=== PATIENT | male | born 1955 | race Caucasian/White ===

== ENCOUNTER 2021-02-23 18:25 | Emergency (ER) | payer MEDICAID, SELFPAY ==
[2021-02-23 19:51] VITALS: BP 130/83; PULSE 92; RESP 20; TEMP 36.9; O2SAT 95; BMI 36.9
--- NOTE | 2021-02-23 20:02 | HMH.EDUTC ---
[facility] [place] Disposition Clinical Impression: COPD exacerbation Disposition: Home, Self-Care Condition on Discharge: Good Instructions: Chronic Obstructive Pulmonary Disease, Preventing the Spread of Coronavirus Discharge Instructions, DI for COVID-19 (Suspected or Confirmed ) Additional Instructions: Drink plenty of fluids. Take tylenol for pain or fever. Take the medications as directed. Follow up with your regular doctor. GO TO THE ER FOR ANY WORSENING SYMPTOMS Don't start the oral steroids until tomorrow, since you had the shot here today. Watch your blood sugars and follow your diabetic diet closely while you are on the steroids. Steroids will make your blood sugars run higher. Prescriptions: Amoxicillin/Potassium Clav [Augmentin 875-125 Tablet] 1 tab PO Q12H 10 Days #20 tab Transmission Status: [facility] Benzonatate [Benzonatate 100mg cap] 100 mg PO TIDP PRN #30 cap PRN Reason: Cough Transmission Status: Pending to [facility] methylPREDNISolone [Medrol] 4 mg PO DIRECTED 6 Days #21 packet Transmission Status: Pending to [facility] guaiFENesin [Mucinex 600mg tablet] 1 - 2 tab PO BIDP PRN #30 tab PRN Reason: Congestion Transmission Status: Pending to [facility] Referrals: Eugene Hunt [Primary Care Provider] - Time of Disposition: 20:53 Medical Decision Making - Medical Records Medical records reviewed: No: I reviewed the patient's medical records. - Tod Inquiry Pt receiving controlled substance: No Vital Signs: 02/23/21 19:51 Temperature 98.5 F Temperature Source Oral Pulse Rate [Left] 92 H Respiratory Rate 20 Blood Pressure [Right Arm] 130/83 Blood Pressure Mean [Right Arm] 98 02 Sat by Pulse Oximetry 95 Orders (Tests/Meds): ED MEDICATIONS Discontinued Medications Generic Name Dose Route Start Last Admin Trade Name Freq PRN Reason Stop Dose Admin Ceftriaxone Sodium 1 gm 02/23/21 20:29 02/23/21 20:43 Ceftriaxone 1gm Vial IM 02/23/21 20:30 1 gm ONCE ONE Administration Lidocaine HCl 0 ml 02/23/21 20:29 02/23/21 20:43 Lidocaine 1% 5ml Pf Vial IM 02/23/21 20:30 2 ml ONCE ONE Administration Methylprednisolone Sodium Succinate 125 mg 02/23/21 20:29 02/23/21 20:43 Methylprednisolone Sod Succ 125mg Vial IM 02/23/21 20:30 125 mg ONCE ONE Administration ORDERS Category Date Time Status Covid-19 Nasal PCR ([facility]) Routine Lab 02/23/21 20:18 Ordered [facility] [place] HPI - General Stated complaint: cough sob congestion Time Seen by Provider: 02/23/21 20:02 Mode of Arrival: Ambulatory Source of Information: Patient Limitations: No Limitations Description of Symptoms (Recalled from Triage Doc. by RN): pt c/o of congestion. pt also states that periodically he is SOA. HEENT Symptoms (Recalled from RN notes): Yes (congestion) Resp Symptoms (Recalled from RN notes): No Skin Symptoms (Recalled from RN notes): No MS Symptoms (Recalled from RN notes): No Functional Status (Recalled from RN notes): wnl - History of Present Illness Provider Complaint: He states that he has been having shortness of breath, productive cough with greenish sputum and sinus congestion for the past 1 week. He denies any fever or chills. He has a history of copd. - Related Data Previous Rx's Medication Instructions Recorded Amoxicillin/Potassium Clav 1 tab PO Q12H 10 Days #20 tab 02/23/21 [Augmentin 875-125 Tablet] Benzonatate [Benzonatate 100mg 100 mg PO TIDP PRN #30 cap 02/23/21 cap] guaiFENesin [Mucinex 600mg tablet] 1 - 2 tab PO BIDP PRN #30 tab 02/23/21 methylPREDNISolone [Medrol] 4 mg PO DIRECTED 6 Days #21 02/23/21 packet Allergies Allergy/AdvReac Type Severity Reaction Status Date / Time No Known Allergies Allergy Verified 02/23/21 19:53 - Worker's Comp Is this a Worker's Comp case?: No [facility] History - Hepatitis A Screen Drug use history?: No High risk sex
[2021-02-23 20:55] VITALS: BP 130/83; PULSE 92; RESP 20; TEMP 36.9
== END 2021-02-23 21:01 | disposition home or self-care (01) ==
PROVIDERS: Emergency Provider Nurse Practitioner Family; PCP Family Medicine
DX: J44.1 Chronic obstructive pulmonary disease with (acute) exacerbation (principal); Z20.822 Contact with and (suspected) exposure to COVID-19
CPT/HCPCS: 96372; 99202; C9803; G0463; U0003; U0005

== ENCOUNTER 2021-03-08 17:16 | Emergency (ER) | payer MEDICAID, SELFPAY ==
--- NOTE | 2021-03-08 17:26 | XR_ITS ---
PROCEDURE INFORMATION: Exam: XR Chest Exam date and time: 03/08/2021 5:26 PM Age: 65 years old Clinical indication: Cough TECHNIQUE: Imaging protocol: XR of the chest. Views: 1 view. Total images: 1 COMPARISON: No relevant prior studies available. FINDINGS: Lungs: Normal pulmonary expansion. Pulmonary vasculature grossly normal. Alveolar opacities in the left perihilar and right basilar distribution concerning for multifocal pneumonia. Pleural spaces: No pleural effusion. No pneumothorax. Heart/Mediastinum: Heart size normal. No tracheal/mediastinal shift. Bones/joints: No acute osseous abnormalities are identified. IMPRESSION: Bilateral alveolar opacities concerning for multifocal pneumonia.
[2021-03-08 17:29] VITALS: PULSE 50; RESP 24; TEMP 37.2; O2SAT 97; BMI 36.9
[2021-03-08 17:45] VITALS: BP 183/75; PULSE 91; O2SAT 95
[2021-03-08 17:46] LABS: Influenza A, PCR Not Detected (NotDetected); Influenza B, PCR Not Detected (NotDetected)
--- NOTE | 2021-03-08 17:46 | PC.NURSE ---
rad at bedside
[2021-03-08 17:57] LABS: Basophils # 0.1 K/mm3 (0-0.2); Basophils % 1.4 % (0.1-2.0); Eosinophils # 0.2 K/mm3 (0.0-0.4); Eosinophils % 2.1 % (0.1-12.0); Hematocrit 56.4 % (42.0-52.0); Hemoglobin 17.7 g/dL (14.1-18.0); Lymphocytes # 1.5 K/mm3 (0.7-4.5); Mean Corpuscular HGB Conc 31.3 g/dL (31.8-35.4); Mean Corpuscular Hemoglobin 31.5 pg (27.0-31.2); Mean Corpuscular Volume 100.6 fl (80-94); Mean Platelet Volume 8.4 fl (7.4-10.4); Monocytes # 0.6 K/mm3 (0.1-1.0); Monocytes % 7.1 % (1.7-9.3); Neutrophils # 5.6 K/mm3 (1.8-7.8); Neutrophils % 70.4 % (37.0-80.0); Platelet Count 252 K/mm3 (142-424); Red Blood Count 5.61 M/mm3 (4.60-6.20); Red Cell Distribution Width 12.6 % (11.5-17.5); White Blood Count 7.9 K/mm3 (4.8-10.8)
--- NOTE | 2021-03-08 18:00 | HMH.EDGENADL ---
ED Disposition Clinical Impression: Pneumonia due to COVID-19 virus Disposition: Home, Self-Care Condition on Discharge: Good Instructions: DI for COVID-19 (Suspected or Confirmed ) Prescriptions: Albuterol Sulfate [Albuterol Sulfate Hfa] 2 puff IH Q4HP PRN #1 each PRN Reason: Wheezing Transmission Status: Pending to [facility] methylPREDNISolone [Medrol 4mg tab] 4 mg PO DIRECTED #21 tab Transmission Status: Pending to [facility] Azithromycin [Z-Del 250mg Tab] 250 mg PO DIRECTED #6 tab Transmission Status: Pending to [facility] Referrals: Eugene Hunt [Primary Care Provider] - - Critical Care Critical Care Time: No Attestation: On 03/08/21, the high probability of a clinically significant, sudden or life threatening deterioration of the following system(s) required my full and direct attention, intervention and personal management. The time I documented below is in addition to time spent performing reported procedures but includes the following listed in this critical care notation. Medical Decision Making - Medical Records Medical records reviewed: Yes: I reviewed the patient's medical records. - Tod Inquiry Pt receiving controlled substance: No Vital Signs: 03/08/21 17:29 03/08/21 17:45 Temperature 98.9 F Temperature Source Oral Pulse Rate 91 H Pulse Rate [Left Radial] 50 L Respiratory Rate 24 Blood Pressure 183/75 H 02 Sat by Pulse Oximetry 97 95 Oxygen Delivery Method Room Air - Lab Data Lab Results 03/08/21 17:41: WBC 7.9, RBC 5.61, Hgb 17.7, Hct 56.4 H, MCV 100.6 H, MCH 31.5 H, MCHC 31.3 L, RDW 12.6, Plt Count 252, MPV 8.4, Neut % (Auto) 70.4, Lymph % (Auto) 19.0, [place] % (Auto) 7.1, Eos % (Auto) 2.1, Baso % (Auto) 1.4, Neut # (Auto) 5.6, Lymph # (Auto) 1.5, [place] # (Auto) 0.6, Eos # (Auto) 0.2, Baso # (Auto) 0.1 03/08/21 17:41: Sodium 137, Potassium 5.0, Chloride 98, Carbon Dioxide 33 H, Anion Gap 11.0, BUN 12, Creatinine 0.80, Estimated Creat Clear 120, Estimated GFR 97, Est GFR ( Amer) 118, Glucose 291 H, Calcium 9.3, Total Bilirubin 0.3, AST 33, ALT 40, Alkaline Phosphatase 92, Troponin I < 0.01, NT-Pro-B Natriuret Pep 29.0, Total Protein 7.7, Albumin 4.6, Globulin 3.1, Albumin/Globulin Ratio 1.5 03/08/21 17:41: SARS-CoV-2 (PCR) Detected A, Influenza A Untype (PCR) Not detected, Influenza Type B (PCR) Not detected Result diagrams: 03/08/21 17:41 03/08/21 17:41 Orders (Tests/Meds): ED MEDICATIONS Discontinued Medications Generic Name Dose Route Start Last Admin Trade Name Freq PRN Reason Stop Dose Admin Albuterol/Ipratropium 3 ml 03/08/21 17:26 03/08/21 17:52 Ipratropium/Albuterol 3 Ml Neb IH 03/08/21 17:27 3 ml ONCE ONE Administration Dexamethasone Sodium Phosphate 10 mg 03/08/21 17:26 03/08/21 17:54 Dexamethasone 4mg/Ml 5ml Mdv IV 03/08/21 17:27 10 mg ONCE ONE Administration ORDERS Category Date Time Status Troponin I Q3H Lab 03/08/21 20:30 Ordered Troponin I Q3H Lab 03/08/21 23:30 Ordered - Radiology Data #1 Image(s): Chest Image Reviewed: Yes I reviewed the patient's radiology results, Yes I reviewed the patient's radiology image, Yes I have reviewed radiologist's interpretation IMPRESSION: Bilateral alveolar opacities concerning for multifocal pneumonia. - Reevaluation(s) Time: 18:39 Reevaluation #1: On reevaluation, the patient is feeling better. There is no hypoxia or respiratory distress. We did ambulate the patient without any desaturation. Findings are consistent with Covid pneumonia. Patient be placed on a short course of steroids. Needs follow-up with PCP in 48 hours. Given strict return precautions. Verbalized understanding. Medical Decision Narrative: 65-year-old male presented to the emergency department with some difficulty breathing weakness. Patient is wheezing on examination. Vitals are concerning for pneumonia versus bronchitis.
[2021-03-08 18:02] LABS: Chloride 98 mmol/L (98-107); Sodium 137 mmol/L (136-145)
[2021-03-08 18:04] LABS: Alanine Aminotransferase 40 U/L (12-78); Aspartate Amino Transferase 33 U/L (17-59); Blood Urea Nitrogen 12 mg/dl (9-20); Creatinine Clearance Estimated 120 mL/min (50-200); Estimated Glomerular Filt Rate 97 ml/min (>60); GFR (African American) 118 ML/MIN (>60)
[2021-03-08 18:05] LABS: Albumin Level 4.6 g/dl (3.5-5.0); Albumin/Globulin Ratio 1.5 (1.1-1.8); Alkaline Phosphatase 92 U/L (38-126); Bilirubin,Total 0.3 mg/dl (0.2-1.3); Calcium 9.3 mg/dl (8.4-10.2); Carbon Dioxide 33 mmol/L (22.0-30.0); Globulin 3.1 g/dL (1.3-3.2); Glucose 291 mg/dl (74-100); Total Protein,Serum 7.7 g/dl (6.3-8.2)
[2021-03-08 18:17] LABS: Troponin I < 0.01 ng/ml (0.00-0.034)
[2021-03-08 18:36] LABS: Coronavirus 19, PCR Detected (NotDetected)
[2021-03-08 18:41] VITALS: BP 131/90; PULSE 89; RESP 20; TEMP 37.2; O2SAT 91
== END 2021-03-08 18:50 | disposition home or self-care (01) ==
PROVIDERS: Emergency Provider Emergency Medicine; PCP Family Medicine
DX: U07.1 COVID-19 (principal); J12.82 Pneumonia due to coronavirus disease 2019
CPT/HCPCS: 71045; 80053; 83880; 84484; 85025; 96374; 99283; C9803; U0003; U0005

== ENCOUNTER 2021-03-23 21:56 | Emergency (ER) | payer MEDICAID, SELFPAY ==
[2021-03-23 21:57] VITALS: BP 176/83; PULSE 67; RESP 18; TEMP 36.6; O2SAT 97; BMI 36.9
[2021-03-23 22:01] VITALS: BP 176/83; PULSE 71; O2SAT 94
--- NOTE | 2021-03-23 22:03 | ECG_ITS ---
APPROVED REPORT Exam: Resting ECG HR:100 bpm ECG Measurements Heart Rate 100 AXES VT 176 P 101 QRSd 97 QRS 9 QT 353 T 62 QTc 410 Conclusion SINUS TACHYCARDIA WITH OCCASIONAL SUPRAVENTRICULAR PREMATURE COMPLEXES ABNORMAL RHYTHM ECG UNCONFIRMED REPORT Electronically signed by : Roel Barrera MD 03/29/2021 17:36:22
[2021-03-23 22:05] VITALS: BMI 36.9
--- NOTE | 2021-03-23 22:06 | XR_ITS ---
PROCEDURE INFORMATION: Exam: XR Chest Exam date and time: 03/23/2021 10:06 PM Age: 65 years old Clinical indication: Shortness of breath; Additional info: Shortness of air TECHNIQUE: Imaging protocol: XR of the chest. Views: 2 views. COMPARISON: CR XR CHEST PORTABLE 03/08/2021 5:43 PM FINDINGS: Lungs: Mild interval improvement in bilateral pulmonary opacities. Pleural spaces: Unremarkable. No pleural effusion. No pneumothorax. Heart/Mediastinum: Unremarkable. No cardiomegaly. Bones/joints: Unremarkable. IMPRESSION: Mild interval improvement in bilateral pulmonary opacities. This is most likely resolving pneumonia. Follow-up radiographs to resolution is recommended to exclude underlying malignancy.
[2021-03-23 22:30] VITALS: BP 146/79; PULSE 106; RESP 30; O2SAT 96
[2021-03-23 22:40] LABS: Basophils # 0.1 K/mm3 (0-0.2); Eosinophils # 0.2 K/mm3 (0.0-0.4); Eosinophils % 2.1 % (0.1-12.0); Hematocrit 54.6 % (42.0-52.0); Hemoglobin 17.1 g/dL (14.1-18.0); Lymphocytes # 2.3 K/mm3 (0.7-4.5); Lymphocytes % 20.9 % (10-50); Mean Corpuscular HGB Conc 31.4 g/dL (31.8-35.4); Mean Corpuscular Hemoglobin 31.4 pg (27.0-31.2); Mean Corpuscular Volume 99.9 fl (80-94); Monocytes # 0.7 K/mm3 (0.1-1.0); Monocytes % 6.7 % (1.7-9.3); Neutrophils # 7.7 K/mm3 (1.8-7.8); Neutrophils % 69.4 % (37.0-80.0); Platelet Count 305 K/mm3 (142-424); Red Blood Count 5.46 M/mm3 (4.60-6.20); Red Cell Distribution Width 12.6 % (11.5-17.5); White Blood Count 11.1 K/mm3 (4.8-10.8)
[2021-03-23 22:42] LABS: Anion Gap 14.3 mEq/L (5-15); Blood Urea Nitrogen 12 mg/dl (9-20); Calcium 9.3 mg/dl (8.4-10.2); Carbon Dioxide 25 mmol/L (22.0-30.0); Chloride 104 mmol/L (98-107); Creatinine Clearance Estimated 120 mL/min (50-200); Estimated Glomerular Filt Rate 114 ml/min (>60); GFR (African American) 137 ML/MIN (>60); Glucose 147 mg/dl (74-100); Potassium 4.3 mmoL/L (3.5-5.1); Sodium 139 mmol/L (136-145)
[2021-03-23 23:00] VITALS: BP 144/68; PULSE 114; RESP 27; O2SAT 91
[2021-03-23 23:01] LABS: Procalcitonin 0.103 ng/mL (0.0-2.0)
[2021-03-23 23:08] LABS: Lactic Acid 2.3 mmol/L (0.7-2.1)
[2021-03-23 23:09] LABS: Troponin I < 0.01 ng/ml (0.00-0.034)
--- NOTE | 2021-03-23 23:17 | PC.NURSE ---
Pt gone to rad
[2021-03-23 23:22] LABS: Erythrocyte Sedimentation Rate 7 mm/hr (0-20)
--- NOTE | 2021-03-23 23:23 | PC.NURSE ---
Pt refuses ct for pe protocol due to adverse reaction to ct contrast. States that contrast makes him very sleepy and feel nauseaus. Refuses to be premedicated for ct contrast
--- NOTE | 2021-03-23 23:25 | PC.NURSE ---
Pt back from rad
[2021-03-23 23:30] VITALS: BP 133/61; PULSE 93; O2SAT 95
--- NOTE | 2021-03-23 23:54 | PC.NURSE ---
Updated patients daughter.
[2021-03-24] VITALS: BP 141/61; PULSE 107; O2SAT 94
[2021-03-24 00:30] VITALS: BP 133/59; PULSE 100; O2SAT 93
[2021-03-24 01:00] VITALS: BP 121/59; PULSE 93; O2SAT 97
[2021-03-24 01:07] LABS: Influenza A, PCR Not Detected (NotDetected); Influenza B, PCR Not Detected (NotDetected)
--- NOTE | 2021-03-24 01:25 | HMH.EDSOB ---
ED Disposition Clinical Impression: Acute exacerbation of chronic obstructive airways disease, Pneumonia due to COVID-19 virus Disposition: Home, Self-Care Condition on Discharge: Good Instructions: DI for Chronic Obstructive Pulmonary Disease, DI for COVID-19 (Suspected or Confirmed ) Additional Instructions: fluids and see pcp for follow up Prescriptions: levoFLOXacin [Levaquin 500mg tab] 500 mg PO DAILY #7 tab Transmission Status: [facility]ending [facility] predniSONE [Prednisone 20mg Tab] 20 mg PO BID #10 tab Transmission Status: Pending [facility] Referrals: Eugene Hunt [Primary Care Provider] - - Critical Care Critical Care Time: No Attestation: On 03/23/21, the high probability of a clinically significant, sudden or life threatening deterioration of the following system(s) required my full and direct attention, intervention and personal management. The time I documented below is in addition to time spent performing reported procedures but includes the following listed in this critical care notation. Medical Decision Making - Medical Records Medical records reviewed: Yes: I reviewed the patient's medical records. - Tod Inquiry Pt receiving controlled substance: No Vital Signs: 03/23/21 21:57 03/23/21 22:01 03/23/21 22:30 Temperature 97.8 F Temperature Source Oral Pulse Rate 71 106 H Pulse Rate [Apical] 67 Respiratory Rate 18 30 H Blood Pressure 176/83 H 146/79 H Blood Pressure [Right Arm] 176/83 H Blood Pressure Mean [Right Arm] 114 Blood Pressure Source Automatic Cuff Automatic Cuff Blood Pressure Source [Right Arm] Automatic Cuff Blood Pressure Position [Right Arm] Sitting 02 Sat by Pulse Oximetry 97 94 L 96 Oxygen Delivery Method Room Air Room Air Room Air 03/23/21 23:00 03/23/21 23:30 03/24/21 00:00 Temperature Temperature Source Pulse Rate 114 H 93 H 107 H Pulse Rate [Apical] Respiratory Rate 27 H Blood Pressure 144/68 H 133/61 141/61 H Blood Pressure [Right Arm] Blood Pressure Mean [Right Arm] Blood Pressure Source Automatic Cuff Automatic Cuff Blood Pressure Source [Right Arm] Blood Pressure Position [Right Arm] 02 Sat by Pulse Oximetry 91 L 95 94 L Oxygen Delivery Method Room Air Room Air Room Air 03/24/21 00:30 03/24/21 01:00 Temperature Temperature Source Pulse Rate 100 H 93 H Pulse Rate [Apical] Respiratory Rate Blood Pressure 133/59 L 121/59 L Blood Pressure [Right Arm] Blood Pressure Mean [Right Arm] Blood Pressure Source Automatic Cuff Blood Pressure Source [Right Arm] Blood Pressure Position [Right Arm] 02 Sat by Pulse Oximetry 93 L 97 Oxygen Delivery Method Room Air Room Air - Lab Data Lab results reviewed: Yes: I reviewed the patient's lab results. Lab Results 03/23/21 22:07: Sodium 139, Potassium 4.3, Chloride 104, Carbon Dioxide 25, Anion Gap 14.3, BUN 12, Creatinine 0.70, Estimated Creat Clear 120, Estimated GFR 114, Est GFR ( Amer) 137, Glucose 147 H, Calcium 9.3, Troponin I < 0.01, C-Reactive Protein 2.0 03/23/21 22:07: Lactate 2.3 H 03/23/21 22:07: WBC 11.1 H, RBC 5.46, Hgb 17.1, Hct 54.6 H, MCV 99.9 H, MCH 31.4 H, MCHC 31.4 L, RDW 12.6, Plt Count 305, MPV 9.0, Neut % (Auto) 69.4, Lymph % (Auto) 20.9, [place] % (Auto) 6.7, Eos % (Auto) 2.1, Baso % (Auto) 1.0, Neut # (Auto) 7.7, Lymph # (Auto) 2.3, [place] # (Auto) 0.7, Eos # (Auto) 0.2, Baso # (Auto) 0.1, ESR 7 03/23/21 22:07: Procalcitonin 0.103 Result diagrams: 03/23/21 22:07 03/23/21 22:07 Orders (Tests/Meds): ED MEDICATIONS Generic Name Dose Route Start Last Admin Trade Name Freq PRN Reason Stop Dose Admin Albuterol Sulfate 2 puffs 03/24/21 01:30 Albuterol-Hfa 90mcg/Puff Inhaler 8gm IH 04/23/21 01:29 Q4HP PRN Shortness Of Breath Sodium Chloride 1,000 mls @ 999 mls/hr 03/23/21 22:45 03/23/21 22:31 Sod Chlor 0.9% 1000ml Bag IV 03/23/21 23:45 999 mls/hr .Q1H1M BARB
[2021-03-24 01:42] LABS: Troponin I < 0.01 ng/ml (0.00-0.034)
[2021-03-24 01:43] LABS: Coronavirus 19, PCR Detected (NotDetected)
[2021-03-24 01:44] VITALS: BP 132/70; PULSE 95; RESP 20; TEMP 36.8; O2SAT 94
== END 2021-03-24 01:59 | disposition home or self-care (01) ==
PROVIDERS: Emergency Provider Emergency Medicine; PCP Family Medicine
DX: U07.1 COVID-19 (principal); J12.82 Pneumonia due to coronavirus disease 2019; J44.1 Chronic obstructive pulmonary disease with (acute) exacerbation
CPT/HCPCS: 71046; 80048; 83605; 84145; 84484; 85025; 85651; 86140; 93005; 96365; 96366; 96367; 96375; 99283; C9803; J0696; U0003; U0005

== ENCOUNTER 2021-07-16 17:33 | Emergency (ER) | payer MEDICAID, SELFPAY ==
[2021-07-16 17:50] VITALS: BP 125/81; PULSE 103; RESP 20; TEMP 36.6; O2SAT 95; BMI 32.5
--- NOTE | 2021-07-16 18:45 | HMH.EDUTC ---
[facility] [place] Disposition Clinical Impression: Loss of taste Disposition: Home, Self-Care Condition on Discharge: Good Instructions: True or False: Different Parts of the Tongue Sense Different Tastes, When Food Doesn't Taste Good, Taste and Smell Disorders Additional Instructions: You was checked for COVID today in the [facility] due to loss of taste your results should be back in the next 24-48 hours if they are negative make sure to follow up with your Family Doctor as soon as possible for further evaluation Rinse your mouth with Listerine may help with bad taste in mouth Return if needed Make sure to try drinks like gatoaide zero, yogurt and continue trying to eat even if foods taste off to keep you hydrated and nourished Straight to ER if any life threatening symptoms Referrals: Addison Colón MD [Primary Care Provider] - Time of Disposition: 18:58 Medical Decision Making - Tod Inquiry Pt receiving controlled substance: No Tod was queried for this patient: No Vital Signs: 07/16/21 17:50 Temperature 97.9 F Temperature Source Oral Pulse Rate [Right Brachial] 103 H Respiratory Rate 20 Blood Pressure [Right Arm] 125/81 Blood Pressure Mean [Right Arm] 95 Blood Pressure Source [Right Arm] Automatic Cuff Blood Pressure Position [Right Arm] Sitting 02 Sat by Pulse Oximetry 95 Oxygen Delivery Method Room Air Orders (Tests/Meds): ORDERS Category Date Time Status Full Resp Panel w/COVID ([facility]) Routine Lab 07/16/21 18:53 Ordered [facility] HPI - General Stated complaint: CAN'T EAT , LOST OS TASTE Time Seen by Provider: 07/16/21 18:45 Mode of Arrival: Ambulatory Source of Information: Patient Limitations: No Limitations Description of Symptoms (Recalled from Triage Doc. by RN): PATIENT C/O DECREASED APPETITE AND STATES FOOD HAS BEEN HAVING A CHEMICAL SMELL AND TASTE X 3 WEEKS HEENT Symptoms (Recalled from RN notes): No Resp Symptoms (Recalled from RN notes): No Skin Symptoms (Recalled from RN notes): No MS Symptoms (Recalled from RN notes): No Functional Status (Recalled from RN notes): WNL - History of Present Illness Provider Complaint: Patient states that he has had a loss of appetite and for the last couple of weeks he has noticed that at times nothing tastes right States that he has tried several foods that he use to like but they dont taste well States that he did this after COVID but it got better and now it is back and he wasnt sure why - Related Data Home Medications Medication Instructions Recorded Confirmed hydroxyzine HCl 25 mg tablet 25 mg PO TID PRN 06/28/21 06/28/21 insulin glargine 100 unit/mL (3 42 unit SQ DAILY ml 06/28/21 06/28/21 mL) subcutaneous pen liraglutide 0.6 mg/0.1 mL (18 mg/3 1.8 mg SQ Q24H ml 06/28/21 06/28/21 mL) subcutaneous pen injector metformin 1,000 mg tablet 1,000 mg PO BID 06/28/21 06/28/21 omeprazole 20 mg capsule,delayed 20 mg PO DAILY 06/28/21 06/28/21 release simvastatin 20 mg tablet 20 mg PO HS 06/28/21 06/28/21 umeclidinium 62.5 mcg-vilanterol 1 inh INHALATION DAILY 06/28/21 06/28/21 25 mcg/actuation powdr for inhalation Previous Rx's Medication Instructions Recorded Albuterol Sulfate [Albuterol 2 puff IH Q4HP PRN #1 each 03/08/21 Sulfate Hfa] gabapentin 600 mg tablet 600 mg PO TID #90 tab 06/28/21 hydrocodone 5 mg-acetaminophen 325 1 tab PO BID #60 tab 06/28/21 mg tablet hydrocortisone 1 % topical cream 1 applic TOPICAL BID PRN #28.4 g 06/28/21 methylprednisolone 4 mg tablets in See Rx Instructions PO PER PKG DIR 06/28/21 a dose pack #21 tab Allergies Allergy/AdvReac Type Severity Reaction Status Date / Time Iodinated Contrast Media Allergy Mild hives Verified 06/28/21 15:25 - Worker's Comp Is this a Worker's Comp case?: No [facility] History - Hepatitis A Screen Attestation statement:: This patient has been screened for Hepatitis A risk factors. I have reviewed the patient's past medical history: Yes Medical History: Re
[2021-07-16 19:00] VITALS: BP 125/81; PULSE 103; RESP 20; TEMP 36.6; O2SAT 95
[2021-07-16 19:01] LABS: Adenovirus,PCR Not Detected (NotDetected); Bordetella Pertussis Not Detected (NotDetected); Chlamydophila Pneumoniae, PCR Not Detected (NotDetected); Coronavirus 19, PCR Not Detected (NotDetected); Coronavirus 229E Not Detected (NotDetected); Coronavirus NL63 Not Detected (NotDetected); Coronavirus OC43 Not Detected (NotDetected); Coronovirus HKU1,PCR Not Detected (NotDetected); Human Metapneumovirus Not Detected (NotDetected); Influenza A, PCR Not Detected (NotDetected); Influenza AH1, 2009 Not Detected (NotDetected); Influenza AH1, PCR Not Detected (NotDetected); Influenza AH3,PCR Not Detected (NotDetected); Influenza B, PCR Not Detected (NotDetected); Mycoplasma Pneumoniae, PCR Not Detected (NotDetected); Parainfluenza 1, PCR Not Detected (NotDetected); Parainfluenza 2, PCR Not Detected (NotDetected); Parainfluenza 3, PCR Not Detected (NotDetected); Parainfluenza 4, PCR Not Detected (NotDetected); Respiratory Syncytial Virus Not Detected (NotDetected); Rhinovirus/Enterovirus Not Detected (NotDetected)
== END 2021-07-16 19:04 | disposition home or self-care (01) ==
PROVIDERS: Emergency Provider Nurse Practitioner; PCP Emergency Medicine
DX: R43.2 Parageusia (principal); E11.9 Type 2 diabetes mellitus without complications; K21.9 Gastro-esophageal reflux disease without esophagitis; J44.9 Chronic obstructive pulmonary disease, unspecified; F17.210 Nicotine dependence, cigarettes, uncomplicated; I10 Essential (primary) hypertension; E78.5 Hyperlipidemia, unspecified; Z79.899 Other long term (current) drug therapy
CPT/HCPCS: 87581; 87632; 87798; 99213; C9803; G0463; U0003; U0005

== ENCOUNTER 2021-07-27 10:15 | Observation (INO) | payer MEDICARE, MEDICAID, SELFPAY ==
[2021-07-27] VITALS (12 sets, daily range): BP systolic 90–152; BP diastolic 45–67; PULSE 48–92; RESP 16–20; TEMP 36.4–36.7; O2SAT 95–98; BMI 29.8; BMI 31.2
--- NOTE | 2021-07-27 10:07 | ECG_ITS ---
APPROVED REPORT Exam: Resting ECG HR:92 bpm ECG Measurements Heart Rate 92 AXES KS 175 P 102 QRSd 89 QRS 1 QT 319 T 54 QTc 369 Conclusion SINUS RHYTHM WITH FREQUENT VENTRICULAR PREMATURE COMPLEXES IN A BIGEMINAL PATTERN ABNORMAL RHYTHM ECG UNCONFIRMED REPORT Electronically signed by : Roel Barrera MD 07/27/2021 21:11:34
--- NOTE | 2021-07-27 10:12 | HMH.EDGENADL ---
ED Disposition Clinical Impression: Dehydration, UMESH (acute kidney injury), Altered taste, Weight loss, Anorexia Disposition: Admitted as Observation Condition on Discharge: Fair Referrals: Addison Colón MD [Primary Care Provider] - - Critical Care Critical Care Time: No Attestation: On , the high probability of a clinically significant, sudden or life threatening deterioration of the following system(s) required my full and direct attention, intervention and personal management. The time I documented below is in addition to time spent performing reported procedures but includes the following listed in this critical care notation. Medical Decision Making - Tod Inquiry Pt receiving controlled substance: No Vital Signs: 07/27/21 10:09 07/27/21 10:30 07/27/21 11:00 Temperature 97.6 F Temperature Source Oral Pulse Rate 78 78 Pulse Rate [Right Radial] 48 L Respiratory Rate 16 20 20 Blood Pressure 93/57 L 90/54 L Blood Pressure [Right Radial Artery] 100/45 L Blood Pressure Mean 66 75 Blood Pressure Mean [Right Radial Artery] 63 Blood Pressure Position [Right Radial Artery] Sitting 02 Sat by Pulse Oximetry 98 95 95 Oxygen Delivery Method Room Air 07/27/21 12:00 07/27/21 12:15 Temperature Temperature Source Pulse Rate 92 H 85 Pulse Rate [Right Radial] Respiratory Rate 17 19 Blood Pressure 105/64 L 120/61 Blood Pressure [Right Radial Artery] Blood Pressure Mean 73 Blood Pressure Mean [Right Radial Artery] Blood Pressure Position [Right Radial Artery] 02 Sat by Pulse Oximetry 95 96 Oxygen Delivery Method - Lab Data Lab Results 07/27/21 10:14: WBC 13.4 H, RBC 5.47, Hgb 17.5, Hct 51.1, MCV 93.3, MCH 32.0 H, MCHC 34.3, RDW 12.8, Plt Count 330, MPV 7.9, Neut % (Auto) 72.2, Lymph % (Auto) 18.3, [place] % (Auto) 6.4, Eos % (Auto) 1.5, Baso % (Auto) 1.6, Neut # (Auto) 9.7 H, Lymph # (Auto) 2.5, [place] # (Auto) 0.9, Eos # (Auto) 0.2, Baso # (Auto) 0.2 07/27/21 10:14: Sodium 128 L, Potassium 5.2 H, Chloride 92 L, Carbon Dioxide 23, Anion Gap 18.2 H, BUN 55 H, Creatinine 1.60 H, Estimated Creat Clear 60, Estimated GFR 44 L, Est GFR ( Amer) 53 L, Glucose 162 H, Calcium 10.1, Total Bilirubin 0.5, AST 31, ALT 28, Alkaline Phosphatase 75, Troponin I < 0.01, Total Protein 7.3, Albumin 4.6, Globulin 2.7, Albumin/Globulin Ratio 1.7 07/27/21 12:09: Urine Color Yellow, Urine Appearance Clear, Urine pH 6.0, Ur Specific [place] 1.020, Urine Protein 1+, Urine Glucose (UA) Negative, Urine Ketones Trace, Urine Blood Negative, Urine Nitrate Negative, Urine Bilirubin 1+ A, Urine Urobilinogen 1.0, Ur Leukocyte Esterase Negative, Urine RBC None, Urine WBC Occasional, Ur Squamous Epith Cells Occasional, Urine Bacteria Trace, Hyaline Casts 3-5 Result diagrams: 07/27/21 10:14 07/27/21 10:14 Orders (Tests/Meds): ED MEDICATIONS Discontinued Medications Generic Name Dose Route Start Last Admin Trade Name Freq PRN Reason Stop Dose Admin Sodium Chloride 1,000 mls @ 999 mls/hr 07/27/21 10:30 07/27/21 10:39 Sod Chlor 0.9% 1000ml Bag IV 07/27/21 11:30 999 mls/hr .Q1H1M BARB Administration ORDERS Category Date Time Status US gallbladder Stat Exams 07/27/21 13:05 Ordered Troponin I Q3H Lab 07/27/21 13:15 Ordered Troponin I Q3H Lab 07/27/21 16:15 Ordered - Radiology Data #1 Image(s): Chest Image Reviewed: Yes I reviewed the patient's radiology image, Yes I have reviewed radiologist's interpretation Procedure(s): XR chest portable Accession Number(s): [id number] cc: Addison Colón MD; Germain Beth MD~ FINAL REPORT CLINICAL HISTORY: nausea COMPARISON: March 23, 2021 FINDINGS: The heart and mediastinal structures are unremarkable. There is mild atelectasis or scarring bilaterally. There is no pneumothorax. No acute osseous abnormality is identified. IMPRESSION: Mild atelectasis or scarring bilaterally. Reviewed, Interpreted and
--- NOTE | 2021-07-27 10:15 | XR_ITS ---
FINAL REPORT CLINICAL HISTORY: nausea COMPARISON: March 23, 2021 FINDINGS: The heart and mediastinal structures are unremarkable. There is mild atelectasis or scarring bilaterally. There is no pneumothorax. No acute osseous abnormality is identified. IMPRESSION: Mild atelectasis or scarring bilaterally. Reviewed, Interpreted and Dictated by Germain Beth III, MD Transcribed by Ileana Burgos Authenticated by Germain Beth III, MD on 07/27/2021 11:13:[address] [facility]
[2021-07-27 10:25] LABS: Basophils # 0.2 K/mm3 (0-0.2); Basophils % 1.6 % (0.1-2.0); Eosinophils # 0.2 K/mm3 (0.0-0.4); Eosinophils % 1.5 % (0.1-12.0); Hematocrit 51.1 % (42.0-52.0); Hemoglobin 17.5 g/dL (14.1-18.0); Lymphocytes # 2.5 K/mm3 (0.7-4.5); Lymphocytes % 18.3 % (10-50); Mean Corpuscular HGB Conc 34.3 g/dL (31.8-35.4); Mean Corpuscular Volume 93.3 fl (80-94); Mean Platelet Volume 7.9 fl (7.4-10.4); Monocytes # 0.9 K/mm3 (0.1-1.0); Monocytes % 6.4 % (1.7-9.3); Neutrophils # 9.7 K/mm3 (1.8-7.8); Neutrophils % 72.2 % (37.0-80.0); Platelet Count 330 K/mm3 (142-424); Red Blood Count 5.47 M/mm3 (4.60-6.20); Red Cell Distribution Width 12.8 % (11.5-17.5); White Blood Count 13.4 K/mm3 (4.8-10.8)
[2021-07-27 10:27] LABS: Chloride 92 mmol/L (98-107); Potassium 5.2 mmoL/L (3.5-5.1); Sodium 128 mmol/L (136-145)
[2021-07-27 10:30] LABS: Albumin Level 4.6 g/dl (3.5-5.0); Albumin/Globulin Ratio 1.7 (1.1-1.8); Alkaline Phosphatase 75 U/L (38-126); Anion Gap 18.2 mEq/L (5-15); Aspartate Amino Transferase 31 U/L (17-59); Bilirubin,Total 0.5 mg/dl (0.2-1.3); Blood Urea Nitrogen 55 mg/dl (9-20); Calcium 10.1 mg/dl (8.4-10.2); Carbon Dioxide 23 mmol/L (22.0-30.0); Creatinine Clearance Estimated 60 mL/min (50-200); Estimated Glomerular Filt Rate 44 ml/min (>60); GFR (African American) 53 ML/MIN (>60); Globulin 2.7 g/dL (1.3-3.2); Glucose 162 mg/dl (74-100); Total Protein,Serum 7.3 g/dl (6.3-8.2)
[2021-07-27 10:43] LABS: Alanine Aminotransferase 28 U/L (12-78)
[2021-07-27 10:57] LABS: Troponin I < 0.01 ng/ml (0.00-0.034)
--- NOTE | 2021-07-27 11:17 | CT_ITS ---
FINAL REPORT CLINICAL HISTORY: not eating, losing weight FINDINGS: Axial CT images of the abdomen and pelvis were obtained without intravenous contrast. Coronal reformatted images were also obtained.This study was performed with techniques to keep radiation doses as low as reasonably achievable (ALARA). Individualized dose reduction techniques using automated exposure control or adjustment of mA and/or kV according to the patient's size were employed. Abdomen: There is no evidence of renal stone or hydronephrosis. There are several low-attenuation masses in the kidneys that cannot be accurately characterized without contrast. The gallbladder is present. The liver, spleen and pancreas have an unremarkable, unenhanced appearance. There is bilateral adrenal gland enlargement favoring hyperplasia. No inflammatory process is identified. There is a small supraumbilical hernia containing fat. There is a small umbilical hernia containing fat. Pelvis: Images of the pelvis reveal no evidence of ureteral dilation or ureteral stone.No mass or abnormal fluid collection is identified. The appendix is normal. IMPRESSION: Low-attenuation renal masses cannot be accurately characterized. Reviewed, Interpreted and Dictated by Germain Beth III, MD Transcribed by Mckay Mccurdy Authenticated by Germain Beth III, MD on 07/27/2021 12:35:04 PM [facility]
--- NOTE | 2021-07-27 11:17 | CT_ITS ---
FINAL REPORT CLINICAL HISTORY: possible seizure FINDINGS: Axial images of the head were obtained without contrast. Coronal reformatted images were also obtained.This study was performed with techniques to keep radiation doses as low as reasonably achievable (ALARA). Individualized dose reduction techniques using automated exposure control or adjustment of mA and/or kV according to the patient''s size were employed. There is no evidence of intracranial hemorrhage or mass. The ventricular size is within normal limits. There is no evidence of shift of the midline structures. No abnormal extra axial fluid collection is identified. No skull abnormality is seen on the bone window images. IMPRESSION: No acute intracranial abnormality. Reviewed, Interpreted and Dictated by Germain Beth III, MD Transcribed by Mckay Mccurdy Authenticated by Germain Beth III, MD on 07/27/2021 12:35:05 PM [facility]
--- NOTE | 2021-07-27 11:17 | CT_ITS ---
FINAL REPORT TECHNIQUE: Axial images were obtained from the lung apex to the mid abdomen by computed tomography. Coronal reformatted images were obtained. This study was performed with techniques to keep radiation doses as low as reasonably achievable, (ALARA). Individualized dose reduction techniques using automated exposure control or adjustment of mA and/or kV according to the patient''s size were employed. CLINICAL HISTORY: not eating, losing weight FINDINGS: There is no axillary adenopathy. There is no hilar or mediastinal adenopathy. Heart size is normal. There is no pericardial or pleural effusion. There is a 3 mm nodule in the left upper lobe on image 20. There is mild atelectasis or scarring. A calcified granuloma is seen in the lingula. IMPRESSION: 3 mm left upper lobe nodule. If indicated, follow-up in 12 months. Reviewed, Interpreted and Dictated by Germain Beth III, MD Transcribed by Mckay Mccurdy Authenticated by Germain Beth III, MD on 07/27/2021 12:35:04 PM [facility]
--- NOTE | 2021-07-27 11:25 | PC.NURSE ---
pt to radiology with cat scan technologist by susy
--- NOTE | 2021-07-27 11:48 | PC.NURSE ---
pt sitting up on side of the bed using urinal at this time
--- NOTE | 2021-07-27 12:10 | PC.NURSE ---
UA sent to lab; patient hooked back to monitor and has no other needs at this time
[2021-07-27 12:13] LABS: Microscopic, Urine URINE MICROSCOPIC (MICROSCOPIC)
[2021-07-27 12:18] LABS: Appearance,Urine CLEAR (Clear); Blood, Urine Negative (Negative); Color,Urine YELLOW (Yellow); Glucose,Urine (UA) Negative (Negative); Ketones,Urine TRACE (Negative); Leukocyte Esterase,Urine Negative (Negative); Nitrate,Urine Negative (Negative); Protein,Urine 1+ (Negative)
[2021-07-27 12:41] LABS: Bacteria,Urine Trace /lpf; Bilirubin,Urine 1+ (Negative); Squamous Epithelial Cell,Urine Occasional #/hpf (0-5); WBC,Urine Occasional #/hpf (0-3)
--- NOTE | 2021-07-27 13:01 | PC.NURSE ---
Dr. Pino speaking with Dr. Colón
--- NOTE | 2021-07-27 13:05 | US_ITS ---
PROCEDURE INFORMATION: Exam: US Abdomen, Limited; Right Upper Quadrant Exam date and time: 07/27/2021 4:33 PM Age: 65 years old Clinical indication: Nausea; Patient HX: Loss of weight; Additional info: Not eating TECHNIQUE: Imaging protocol: US abdomen. Real time ultrasound with image documentation. Limited exam focused on the right upper quadrant. COMPARISON: CT ABDOMEN PELVIS WO CON 07/27/2021 11:26 AM FINDINGS: Liver: No masses. Gallbladder: The gallbladder is dilated measuring 13 cm in length. There is no wall thickening. No calculi; small amount of sludge. Biliary ducts: Common bile duct is 3 mm. Pancreas: The pancreatic head is unremarkable. The body and tail are obscured by bowel gas. Right kidney: Normal. No mass. No hydronephrosis. IMPRESSION: No evidence of cholelithiasis and/or cholecystitis. There is a small amount of sludge in a dilated gallbladder.
--- NOTE | 2021-07-27 13:05 | PC.NURSE ---
ED MD at speaking with patient
--- NOTE | 2021-07-27 13:05 | PC.NURSE ---
Spoke to Alina in Care Management regarding patient admission
[2021-07-27 13:12] LABS: Coronavirus 19, PCR Not Detected (NotDetected); Influenza A, PCR Not Detected (NotDetected); Influenza B, PCR Not Detected (NotDetected)
--- NOTE | 2021-07-27 13:51 | PC.NURSE ---
Family at BS
--- NOTE | 2021-07-27 14:00 | PC.NURSE ---
REPORT CALLED TO RADHA MATSON
--- NOTE | 2021-07-27 14:24 | HMH.PHAINT ---
MEDICATION RECONCILIATION COMPLETE USING LIST FROM MOST RECENT MD OFFICE VISIT AND EXTERNAL PHARMACY FILL HISTORY.
--- NOTE | 2021-07-27 14:51 | PC.NURSE ---
pt going to 2nd floor by wheelchair with TAO Vidal to be transported to 2nd floor
--- NOTE | 2021-07-27 14:55 | PC.NURSE ---
Pt arrived to the floor at this time
--- NOTE | 2021-07-27 14:59 | HMH.PHAVTE ---
[facility] Pharm[facility] VTE Monitoring - Patient Demographics Admission date: 07/27/21 Report Date: 07/27/21 Time: 14:59 Allergies/Adverse Reactions: Patient Allergies Iodinated Contrast Media Allergy (Mild, Verified 07/27/21 09:05) hives Height: 1.75 m Weight: 91.626 kg Patient Problems: Current Active Problems Dehydration (Acute) UMESH (acute kidney injury) (Acute) Altered taste (Acute) Weight loss (Acute) Anorexia (Acute) - VTE Risk Labs: VTE Related Lab Results Hgb 17.5 g/dL (14.1-18.0) 07/27/21 10:14 Hct 51.1 % (42.0-52.0) 07/27/21 10:14 Plt Count 330 K/mm3 (142-424) 07/27/21 10:14 BUN 55 mg/dl (9-20) H 07/27/21 10:14 Creatinine 1.60 mg/dl (0.66-1.25) H 07/27/21 10:14 Estimated Creat Clear 60 mL/min (50-200) 07/27/21 10:14 Was VTE Risk Assessment Performed: No Clinical Trial Participant: No - Prophylaxis VTE Prophylaxis Ordered?: Yes Types of VTE Prophylaxis: TEDS Knee High Location of Applied Device: Bilateral Lower Extremeties
[2021-07-27 16:55] LABS: POC Glucose,Bedside 106 (70-110)
--- NOTE | 2021-07-27 20:05 | HMH.HP ---
*Admission Date: 07/27/21 *Chief complaint: weakness *History of present illness: this patient was seen in [facility] office this am with hx of wt loss and dec po intake with vomiting - pt had covid-19 in 03/20 and since dec smell and taste with dec po intake - pt had possible sz like activity in office and was transfered to ed for eval - pt was seen in the ed - the patient has not been well for the past month or so. Has been recently seen at [facility] and was at his office for follow-up. Had an episode that could have been an atypical seizure with staring off to the side and not responding, has returned to normal. Daughter says the patient is also had episodes of passing out at home. She says that for the past month he has not been able to eat, everything that he tries to eat has a metallic taste. He has lost 18 pounds since his last doctor's visit. He is generally weak. Daughter says she has looked up symptoms on the Internet and found that some people have similar symptoms after COVID. He has had COVID several months ago. The patient is a smoker. He denies any pain. No fever. He has had no change in his bowel habits. No urinary symptoms. Daughter states that he is also had problems recently with his neck and left arm and wears a glove on his left arm because his left hand is always cold and painful. pt was found to have hayde and was admitted for eval and treatment [facility] History I have reviewed the patient's past medical history: Yes Medical History: Reports:: Anxiety, Chronic Obstructive Pulmonary Disease (COPD), Diabetes Mellitus Type 2, Gastroesophageal Reflux Disease(GERD), Hyperlipidemia, Hypertension Denies:: Cancer, Diabetes Mellitus Type 1, MRSA *Have you ever received a pneumonia vaccine?: No *Have you received a flu vaccine this season?: Yes Other Surgeries: Yes: No Previous Surgery Amputation: No Fractures: No - *Social History Last grade of school completed: 7th or 8th Smoking Status: Current every day smoker Tobacco Type: cigarettes # Packs/Day (cigarettes): 1 Alcohol Intake: former Alcohol Intake Frequency:: holidays/special occasions only Substance Use Type: denies use *Occupational Status:: retired Housing: apartment Household Members: none *Travel in the last 8 weeks: None - Psychiatric History Pschychiatric History:: Reports:: Anxiety Family Hx:: Cancer, Diabetes, Hypertension Review of Systems - Review of Systems Review of systems:: pertinent systems reviewed and negative unless documented below - Constitutional Reports weakness, Denies fever(s) - Eyes Denies change in vision - ENT Denies sore throat - *Cardiovascular Denies chest pain at rest - *Respiratory Denies cough - *Gastrointestinal Reports nausea, Reports vomiting, Denies abdominal pain, Denies black, tarry stools - *Genitourinary Denies difficulty urinating - *Musculoskeletal Denies joint pain - Integumentary/Breasts Denies rash - *Neurologic Reports seizure-like activity, Reports fainting, Reports weakness - Psychiatric Denies depression Meds Home Medications Medication Instructions Recorded Confirmed Type Albuterol Sulfate [Albuterol 2 puff IH Q4HP PRN #1 each 03/08/21 07/27/21 Rx Sulfate Hfa] hydroxyzine HCl 25 mg tablet 25 mg PO TIDP PRN 06/28/21 07/27/21 History insulin glargine 100 unit/mL (3 42 unit SQ DAILY ml 06/28/21 07/27/21 History mL) subcutaneous pen liraglutide 0.6 mg/0.1 mL (18 mg/3 1.8 mg SQ Q24H ml 06/28/21 07/27/21 History mL) subcutaneous pen injector metformin 1,000 mg tablet 1,000 mg PO BIDWMEAL 06/28/21 07/27/21 History omeprazole 20 mg capsule,delayed 20 mg PO DAILY 06/28/21 07/27/21 History release simvastatin 20 mg tablet 20 mg PO HS 06/28/21 07/27/21 History umeclidinium 62.5 mcg-vilanterol 1 inh INHALATION DAILY 06/28/21 07/27/21 History 25 mcg/actuation powdr for inhalation Gabapentin 600 mg PO TID 07/27/21 07/27/21 History Hydrocod/Acet
[2021-07-27 21:34] LABS: POC Glucose,Bedside 77 (70-110)
[2021-07-28 04:00] VITALS: BP 110/48; PULSE 63; RESP 14; TEMP 36.7; O2SAT 94
[2021-07-28 04:44] VITALS: BMI 31.3
[2021-07-28 06:02] LABS: POC Glucose,Bedside 85 (70-110)
--- NOTE | 2021-07-28 06:09 | PC.NURSE ---
No acute changes. pt a + o x4. Able to ambulate to BR standby assist. Pt has not voiced any complaints to staff t/o shift. Daughter at bedside. Call light within reach.
[2021-07-28 06:25] LABS: Chloride 98 mmol/L (98-107); Potassium 4.6 mmoL/L (3.5-5.1); Sodium 131 mmol/L (136-145)
[2021-07-28 06:28] LABS: Anion Gap 10.6 mEq/L (5-15); Blood Urea Nitrogen 41 mg/dl (9-20); Calcium 8.7 mg/dl (8.4-10.2); Carbon Dioxide 27 mmol/L (22.0-30.0); Creatinine Clearance Estimated 99 mL/min (50-200); Estimated Glomerular Filt Rate 75 ml/min (>60); GFR (African American) 91 ML/MIN (>60); Glucose 84 mg/dl (74-100)
[2021-07-28 07:33] VITALS: BP 120/61; PULSE 68; RESP 16; TEMP 36.7; O2SAT 97
[2021-07-28 08:00] VITALS: O2SAT 97
--- NOTE | 2021-07-28 09:38 | HMH.PULMCON ---
*Admission Date: 07/27/21 *Reason for consult:: Nausea and vomiting *History of present illness: Mr. Hunt is a 65-year-old male current smoker greater than 30 COPD currently on Anoro inhaler, diagnosed with COVID-19 pneumonia in February 2021 - outpatient presented to the clinic with also further evaluation evaluate for any possible pulmonary etiologies of his current symptoms. [facility] History Medical History: Reports:: Anxiety, Chronic Obstructive Pulmonary Disease (COPD), Diabetes Mellitus Type 2, Gastroesophageal Reflux Disease(GERD), Hyperlipidemia, Hypertension Denies:: Cancer, Diabetes Mellitus Type 1, MRSA *Have you ever received a pneumonia vaccine?: No *Have you received a flu vaccine this season?: Yes Other Surgeries: Yes: No Previous Surgery Amputation: No Fractures: No - *Social History Last grade of school completed: 7th or 8th Smoking Status: Current every day smoker Tobacco Type: cigarettes # Packs/Day (cigarettes): 1 Alcohol Intake: former Alcohol Intake Frequency:: holidays/special occasions only Substance Use Type: denies use *Occupational Status:: retired Housing: apartment Household Members: none *Travel in the last 8 weeks: None - Psychiatric History Pschychiatric History:: Reports:: Anxiety Family Hx:: Cancer, Diabetes, Hypertension ROS - Cons Reports fatigue, Reports weight loss, Denies anorexia, Denies body ache(s) - Eyes Reports blurry vision - ENT Denies bleeding gums - Card Reports shortness of breath, Reports shortness of breath with activity - Resp Respiratory: Reports chest congestion, Reports cough, Denies excessive phlegm production, Reports cough with sputum production - GI Gastrointestingal: Reports: dysphagia, nausea, reflux, vomiting. Denies: abdominal pain - [place] Musculoskeletal: Reports back pain - Psych Denies thoughts of hurting/killing others, Denies thoughts of hurting/killing yourself Meds Home Medications Medication Instructions Recorded Confirmed Type Albuterol Sulfate [Albuterol 2 puff IH Q4HP PRN #1 each 03/08/21 07/27/21 Rx Sulfate Hfa] hydroxyzine HCl 25 mg tablet 25 mg PO TIDP PRN 06/28/21 07/27/21 History insulin glargine 100 unit/mL (3 42 unit SQ DAILY ml 06/28/21 07/27/21 History mL) subcutaneous pen liraglutide 0.6 mg/0.1 mL (18 mg/3 1.8 mg SQ Q24H ml 06/28/21 07/27/21 History mL) subcutaneous pen injector metformin 1,000 mg tablet 1,000 mg PO BIDWMEAL 06/28/21 07/27/21 History omeprazole 20 mg capsule,delayed 20 mg PO DAILY 06/28/21 07/27/21 History release simvastatin 20 mg tablet 20 mg PO HS 06/28/21 07/27/21 History umeclidinium 62.5 mcg-vilanterol 1 inh INHALATION DAILY 06/28/21 07/27/21 History 25 mcg/actuation powdr for inhalation Gabapentin 600 mg PO TID 07/27/21 07/27/21 History Hydrocod/Acet 5/325 mg [Gardner 1 tab PO BID 07/27/21 07/27/21 History 5/325mg tablet] Hydrocortisone 1 applic TP BIDP PRN 07/27/21 07/27/21 History lisinopriL [Lisinopril] 20 mg PO DAILY 07/27/21 07/27/21 History Allergies Allergy/AdvReac Type Severity Reaction Status Date / Time Iodinated Contrast Media Allergy Mild hives Verified 07/27/21 09:05 Exam - Constitutional Constitutional:: Present: no acute distress, comfortable - HENMT Exam HENMT: Present: normocephalic - Eye Exam Eyes:: Present: normal appearance both eyes and related structures - Neck Exam Neck:: Present: normal visual inspection - Respiratory Exam Respiratory:: Present: able to speak in complete sentences, no respiratory distress. Absent: crackles, wheezing - Cardiovascular Exam Cardiac:: Present: S1, S2 - GI Exam GI:: Present: soft - Skin Exam Skin: Present: warm, no rash - Neurological Exam Neurological: Present: alert, awake, normal cognition - Extremities Exam Extremities: Present: no cyanosis, no clubbing, no edema Internal Medicine - CN: Reslt - Labs CBC & Chem 7: 07/27/21 10:14 07/28/21 05:43 Labs: Short CBC
[2021-07-28 11:43] LABS: POC Glucose,Bedside 85 (70-110)
[2021-07-28 12:13] VITALS: BMI 31.0
--- NOTE | 2021-07-28 14:59 | HMH.DCSUM ---
General - General Admission date:: 07/27/21 Discharge date: 07/28/21 HPI HPI: this patient was seen in [facility] office this am with hx of wt loss and dec po intake with vomiting - pt had covid-19 in 03/20 and since dec smell and taste with dec po intake - pt had possible sz like activity in office and was transfered to ed for eval - pt was seen in the ed - the patient has not been well for the past month or so. Has been recently seen at [facility] and was at his office for follow-up. Had an episode that could have been an atypical seizure with staring off to the side and not responding, has returned to normal. Daughter says the patient is also had episodes of passing out at home. She says that for the past month he has not been able to eat, everything that he tries to eat has a metallic taste. He has lost 18 pounds since his last doctor's visit. He is generally weak. Daughter says she has looked up symptoms on the Internet and found that some people have similar symptoms after COVID. He has had COVID several months ago. The patient is a smoker. He denies any pain. No fever. He has had no change in his bowel habits. No urinary symptoms. Daughter states that he is also had problems recently with his neck and left arm and wears a glove on his left arm because his left hand is always cold and painful. pt was found to have hayde and was admitted for eval and treatment Hospital Course Hospital Course: Abnormal Lab Results 07/28/21 05:43: Sodium 131 L, BUN 41 H D - pulm consult: Assessment and plan all Dx Assessment and Plan for all problems:: #History of COVID-19 pneumonia: #History of COPD: #Abnormal CT chest: Current smoker greater than [id number] smoker history. History of COPD on Anoro inhaler. Respiratory symptoms at baseline. History of COVID-19 pneumonia in February 2021 managed as an outpatient basis. Patient denies any worsening respiratory symptoms after his COVID-19 pneumonia. Current symptoms currently include nausea & vomiting and weight loss. Patient also has history of diabetes. Patient admits that his inability for oral intake secondary to loss of taste along with nausea and vomiting COVID and Flu PCR negative. COVID on Feb 2021. Afebrile. Mild leukocytosis. On room air. CT chest reviewed, no dense consolidation, and tree-in-bud nodular opacities predominantly in bilateral upper lobes. No lymphadenopathy noted except for questionable left hilar adenopathy, left contrast limited the delineation. Denies any night sweats. Admits cough with productive phlegm. 3 mm pulmonary nodule noted. Plan: -Sputum AFB atypical mycobacterial infections. -Continue Anoro inhaler along with albuterol as needed -Follow in pulmonary clinic in 6 to 8 weeks with a full PFT and a 6-minute walk testing. -12-month follow-up CT chest without contrast for the noted 3 mm pulmonary nodule along with lung cancer screening given his greater than [id number] smoking history Consider evaluating for other possibilities of patient nausea vomiting including gastric emptying study and possible EGD as an outpatient basis Thank you for involving pulmonary in this patient. We will follow the patient in pulmonary clinic in 6 to 8 weeks. We will further determine the need for bronchoscopy transbronchial biopsy based on his symptoms and AFB stain results at that point to evaluate for possible atypical mycobacterial infections causing the noted tree-in-bud changes in the patient's CAT scan. Discharge Plan (1) [id number] syndrome-Sputum AFB atypical mycobacterial infections.Continue Anoro inhaler along with albuterol as needed,Follow in pulmonary clinic in 6 to 8 weeks with a full PFT and a 6-minute walk testing. 12-month follow-up CT chest without contrast for the noted 3 mm pulmonary nodule along with lung cancer screening given his greater than 86-[id number] smoking history.follow the patient in pulmonary clinic in 6 to 8 weeks
[2021-07-28 16:00] VITALS: BP 128/62; PULSE 63; RESP 16; TEMP 36.7; O2SAT 96
[2021-07-28 16:45] LABS: POC Glucose,Bedside 94 (70-110)
--- NOTE | 2021-07-28 18:20 | PC.NURSE ---
Patient discharged 1730. VS stable and patient remained on room air with no complaints.
--- NOTE | 2021-07-29 12:03 | CARE MANAGER ---
Contacted patient related to discharge from hospital. He states he is feelingmuch better. I contacted pulmonary and PCP and scheduled appointments and provided those to patient. Denies any questions or concerns. DANO Ferro
== END 2021-07-28 17:30 | disposition home or self-care (01) ==
LOC: ER 13:06 → 2ND 13:10
PROVIDERS: Admitting Provider Emergency Medicine; Emergency Provider Emergency Medicine; PCP Emergency Medicine; Visit Provider Emergency Medicine
DX: U09.9 Post COVID-19 condition, unspecified (principal); J44.1 Chronic obstructive pulmonary disease with (acute) exacerbation; Z79.4 Long term (current) use of insulin; I10 Essential (primary) hypertension; Z79.899 Other long term (current) drug therapy; F17.210 Nicotine dependence, cigarettes, uncomplicated; N17.9 Acute kidney failure, unspecified; Z20.822 Contact with and (suspected) exposure to COVID-19; E11.40 Type 2 diabetes mellitus with diabetic neuropathy, unspecified; E66.9 Obesity, unspecified; Z68.31 Body mass index [BMI] 31.0-31.9, adult
CPT/HCPCS: G0378; 36415; 70450; 71045; 71250; 74176; 76705; 80048; 80053; 81001; 82962; 84484; 85025; 93005; 96375; 99285; C9803; U0003; U0005

== ENCOUNTER → 2021-08-18 13:14 | Outpatient (CLI) | payer MEDICARE, MEDICAID, SELFPAY ==
[2021-08-18 13:40] VITALS: PULSE 74; PULSE 78
== END ==
PROVIDERS: PCP Emergency Medicine; Visit Provider Internal Medicine Pulmonary Disease
DX: J44.1 Chronic obstructive pulmonary disease with (acute) exacerbation (principal)
CPT/HCPCS: 94060; 94640; 94727; 94729

== ENCOUNTER → 2021-09-03 08:26 | Outpatient (CLI) | payer MEDICARE, MEDICAID, SELFPAY | PROVIDERS: PCP Nurse Practitioner Family; Visit Provider Emergency Medicine | DX: M54.2 Cervicalgia (principal) ==

== ENCOUNTER → 2021-09-16 10:49 | Outpatient (CLI) | payer MEDICARE, MEDICAID, SELFPAY ==
[2021-09-16 12:11] LABS: Basophils # 0.1 K/mm3 (0-0.2); Basophils % 0.8 % (0.1-2.0); Eosinophils # 1.1 K/mm3 (0.0-0.4); Eosinophils % 9.1 % (0.1-12.0); Hematocrit 45.6 % (42.0-52.0); Hemoglobin 15.4 g/dL (14.1-18.0); Lymphocytes # 1.6 K/mm3 (0.7-4.5); Lymphocytes % 13.6 % (10-50); Mean Corpuscular HGB Conc 33.8 g/dL (31.8-35.4); Mean Corpuscular Hemoglobin 31.6 pg (27.0-31.2); Mean Corpuscular Volume 93.6 fl (80-94); Mean Platelet Volume 7.3 fl (7.4-10.4); Monocytes # 0.7 K/mm3 (0.1-1.0); Monocytes % 5.6 % (1.7-9.3); Neutrophils # 8.5 K/mm3 (1.8-7.8); Neutrophils % 70.9 % (37.0-80.0); Platelet Count 403 K/mm3 (142-424); Red Blood Count 4.88 M/mm3 (4.60-6.20); Red Cell Distribution Width 14.2 % (11.5-17.5)
[2021-09-16 12:58] LABS: Chloride 101 mmol/L (98-107); Sodium 136 mmol/L (136-145)
[2021-09-16 13:00] LABS: Blood Urea Nitrogen 16 mg/dl (9-20); Estimated Glomerular Filt Rate 113 ml/min (>60); GFR (African American) 137 ML/MIN (>60)
[2021-09-16 13:01] LABS: Alanine Aminotransferase 16 U/L (12-78); Albumin Level 4.3 g/dl (3.5-5.0); Albumin/Globulin Ratio 1.6 (1.1-1.8); Alkaline Phosphatase 77 U/L (38-126); Aspartate Amino Transferase 24 U/L (17-59); Bilirubin,Total 0.6 mg/dl (0.2-1.3); Calcium 10.1 mg/dl (8.4-10.2); Carbon Dioxide 25 mmol/L (22.0-30.0); Globulin 2.7 g/dL (1.3-3.2); Glucose 118 mg/dl (74-100)
[2021-09-16 13:32] LABS: Thyroid Stimulating Hormone 1.41 uIU/mL (0.465-4.68)
[2021-09-16 14:34] LABS: Erythrocyte Sedimentation Rate 22 mm/hr (0-20)
== END ==
PROVIDERS: PCP Emergency Medicine; Visit Provider Specialist
DX: E87.1 Hypo-osmolality and hyponatremia (principal); G62.9 Polyneuropathy, unspecified
CPT/HCPCS: 36415; 80053; 84443; 85025; 85651

== ENCOUNTER 2021-10-01 12:00 | Outpatient (RCR) | payer MEDICARE, MEDICAID, SELFPAY | END 2021-10-01 13:00 | disposition home or self-care (01) | LOC: OT 12:00 | PROVIDERS: Visit Provider Orthopaedic Surgery | DX: G56.03 Carpal tunnel syndrome, bilateral upper limbs (principal) | CPT/HCPCS: 97763 ==

== ENCOUNTER 2021-10-05 13:47 | Outpatient (RCR) | payer MEDICARE, MEDICAID, SELFPAY ==
--- NOTE | 2021-10-05 15:46 | HMH.OTOPEV ---
OT Inpatient Evaluation Rehab OT Outpatient Eval Start: 10/05/21 14:43 Freq: Status: Active Protocol: Document 10/05/21 14:45 RMJEFFERSONL (Rec: 10/05/21 15:46 RMSARAHHALL [id number]) Electronically Signed By Yecenia Ortiz OT 10/05/21 14:45 Outpatient Therapy Subjective History Subjective History Pt is a 66 year old male who reports to therapy for initial evaluation to bilateral wrists/hands. Pt reports ~1 year ago he began having numbness and pain in hands. 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 Pt explains his left wrist is the most painful. He is right hand dominant. He no longer works. He saw ortho ~1 week ago and had steroid injections to both wrists. He has also been wearing wrist cock up braces each night. 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 Pt will continue to be seen twice a week to address deficits. 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
== END 2021-10-05 13:50 | disposition home or self-care (01) ==
LOC: OT 13:47
PROVIDERS: PCP Emergency Medicine; Visit Provider Specialist
DX: G56.03 Carpal tunnel syndrome, bilateral upper limbs (principal)
CPT/HCPCS: 97166

== ENCOUNTER → 2021-10-14 12:12 | Outpatient (CLI) | payer MEDICARE, MEDICAID, SELFPAY ==
[2021-10-14 13:26] LABS: Hemoglobin A1C 5.7 % (4.0-6.0)
[2021-10-14 14:13] LABS: Vitamin B12 273 pg/mL (239-931)
== END ==
PROVIDERS: PCP Emergency Medicine; Visit Provider Specialist
DX: E11.9 Type 2 diabetes mellitus without complications (principal); Z79.84 Long term (current) use of oral hypoglycemic drugs
CPT/HCPCS: 36415; 82607; 83036

== ENCOUNTER 2021-10-17 09:33 | Emergency (ER) | payer MEDICARE, MEDICAID, SELFPAY ==
[2021-10-17] VITALS (8 sets, daily range): BP systolic 101–136; BP diastolic 58–83; PULSE 65–102; RESP 18–20; TEMP 36.4–37; O2SAT 96–99; BMI 25.1
--- NOTE | 2021-10-17 09:37 | PC.NURSE ---
Pt to room via wheelchair
[2021-10-17 09:43] LABS: Coronavirus 19, PCR Not Detected (NotDetected); Influenza A, PCR Not Detected (NotDetected); Influenza B, PCR Not Detected (NotDetected)
--- NOTE | 2021-10-17 09:43 | PC.NURSE ---
at the bedside
--- NOTE | 2021-10-17 09:49 | XR_ITS ---
PROCEDURE INFORMATION: Exam: XR Chest Exam date and time: 10/17/2021 10:08 AM Age: 66 years old Clinical indication: Shortness of breath; Additional info: Vomiting, weakness TECHNIQUE: Imaging protocol: Radiologic exam of the chest. Views: 1 view. COMPARISON: CT CHEST WO CON 07/27/2021 11:26 AM FINDINGS: Lungs: Unremarkable. No consolidation. Pleural spaces: Unremarkable. No pleural effusion. No pneumothorax. Heart/Mediastinum: Unremarkable. No cardiomegaly. Bones/joints: Acromioclavicular arthropathy. Other findings: Patient is rotated to the right. Multiple metallic BBs overlie the left shoulder which were not present on the prior study and may be external to the patient. IMPRESSION: 1. No evidence of acute cardiopulmonary process. 2. Patient is rotated to the right which makes the vessels in the left lung base appear prominent.. 3. Multiple metallic BBs overlie the left shoulder which were not present on the prior study and may be external to the patient. 4. Acromioclavicular arthropathy.
--- NOTE | 2021-10-17 09:54 | HMH.EDGENADL ---
ED Disposition Clinical Impression: Constipation Disposition: Home, Self-Care Condition on Discharge: Fair Additional Instructions: Take 1 capful of MiraLAX twice daily until regular bowel movements. 1 capful daily after that. Referrals: Addison Colón MD [Primary Care Provider] - - Critical Care Critical Care Time: No Attestation: On 10/17/21, the high probability of a clinically significant, sudden or life threatening deterioration of the following system(s) required my full and direct attention, intervention and personal management. The time I documented below is in addition to time spent performing reported procedures but includes the following listed in this critical care notation. Medical Decision Making - Tod Inquiry Pt receiving controlled substance: No Vital Signs: 10/17/21 09:43 10/17/21 10:00 10/17/21 10:40 Temperature 97.6 F Temperature Source Oral Pulse Rate 90 65 Pulse Rate [Left Radial] 102 H Respiratory Rate 18 Blood Pressure 124/75 120/67 Blood Pressure [Right Arm] 125/83 Blood Pressure Mean 95 95 Blood Pressure Mean [Right Arm] 97 Blood Pressure Source Blood Pressure Position 02 Sat by Pulse Oximetry 98 96 98 Oxygen Delivery Method Room Air Room Air 10/17/21 11:00 10/17/21 12:52 10/17/21 13:00 Temperature Temperature Source Pulse Rate 72 74 69 Pulse Rate [Left Radial] Respiratory Rate Blood Pressure 136/72 110/62 107/58 L Blood Pressure [Right Arm] Blood Pressure Mean 101 78 76 Blood Pressure Mean [Right Arm] Blood Pressure Source Blood Pressure Position 02 Sat by Pulse Oximetry 97 96 99 Oxygen Delivery Method 10/17/21 13:09 10/17/21 13:13 Temperature 98.6 F Temperature Source Oral Pulse Rate 82 76 Pulse Rate [Left Radial] Respiratory Rate 20 Blood Pressure 101/63 L 101/63 L Blood Pressure [Right Arm] Blood Pressure Mean 73 Blood Pressure Mean [Right Arm] Blood Pressure Source Automatic Cuff Blood Pressure Position Supine 02 Sat by Pulse Oximetry 98 Oxygen Delivery Method Room Air - Lab Data Lab Results 10/17/21 09:38: SARS-CoV-2 (PCR) Not detected, Influenza A Untype (PCR) Not detected, Influenza Type B (PCR) Not detected 10/17/21 10:00: WBC 9.6, RBC 5.03, Hgb 16.2, Hct 51.5, MCV 102.5 H, MCH 32.2 H, MCHC 31.4 L, RDW 14.4, Plt Count 357, MPV 8.3, Neut % (Auto) 78.3, Lymph % (Auto) 12.7, [place] % (Auto) 5.1, Eos % (Auto) 3.1, Baso % (Auto) 0.7, Neut # (Auto) 7.5, Lymph # (Auto) 1.2, [place] # (Auto) 0.5, Eos # (Auto) 0.3, Baso # (Auto) 0.1 10/17/21 10:00: Sodium 137, Potassium 4.1, Chloride 99, Carbon Dioxide 26, Anion Gap 16.1 H, BUN 14, Creatinine 0.70, Estimated Creat Clear 80, Estimated GFR 113, Est GFR ( Amer) 137, Glucose 98, Calcium 9.7, Total Bilirubin 0.5, AST 18, ALT 15, Alkaline Phosphatase 74, Troponin I < 0.01, Total Protein 7.1, Albumin 4.2, Globulin 2.9, Albumin/Globulin Ratio 1.4 10/17/21 10:00: Lactate 1.3 10/17/21 10:00: Lipase 35 Result diagrams: 10/17/21 10:00 10/17/21 10:00 Orders (Tests/Meds): ED MEDICATIONS Discontinued Medications Generic Name Dose Route Start Last Admin Trade Name Russq PRN Reason Stop Dose Admin Diphenhydramine HCl 50 mg 10/17/21 09:51 10/17/21 10:02 Diphenhydramine 50mg/Ml Vial IV 10/17/21 09:52 50 mg ONCE ONE Administration Lactated Ringer's 1,000 mls @ 999 mls/hr 10/17/21 10:00 10/17/21 10:02 Lactated Ringer's 1000 Ml Bag IV 10/17/21 11:00 999 mls/hr .Q1H1M BARB Administration Iopamidol 75 ml 10/17/21 10:37 10/17/21 10:38 Iopamidol-370 (76%);100ml Bottle IV 10/17/21 10:38 75 ml ONCE ONE Administration Magnesium Citrate 10 oz 10/17/21 10:49 10/17/21 11:12 Magnesium Citrate 10oz Bottle PO 10/17/21 10:50 10 oz ONCE ONE Administration Methylprednisolone Sodium Succinate 125 mg 10/17/21 09:51 10/17/21 10:02 Methylprednisolone Sod Succ 125mg Vial IV 10/17/21 09:52 125 mg ONCE ONE A
--- NOTE | 2021-10-17 10:00 | PC.NURSE ---
Radiology at doing portal chest x-ray
--- NOTE | 2021-10-17 10:07 | CT_ITS ---
PROCEDURE INFORMATION: Exam: CT Abdomen And Pelvis With Contrast Exam date and time: 10/17/2021 10:23 AM Age: 66 years old Clinical indication: Abdominal pain; Generalized; Additional info: Pain-- no bowel movement in 1 month per patient TECHNIQUE: Imaging protocol: Computed tomography of the abdomen and pelvis with contrast. Radiation optimization: All CT scans at this facility use at least one of these dose optimization techniques: automated exposure control; mA and/or kV adjustment per patient size (includes targeted exams where dose is matched to clinical indication); or iterative reconstruction. Contrast material: ISOVUE; Contrast volume: 75 ml; Contrast route: IV; COMPARISON: CT ABDOMEN PELVIS WO CON 07/27/2021 11:26 AM FINDINGS: Lungs: Calcified granuloma in the left lung base. Heart: Coronary artery calcifications. Mediastinal space: Mild nonspecific distal esophageal wall thickening. Liver: Mild focal fatty infiltration of the liver along the falciform ligament. Gallbladder and bile ducts: Mild nonspecific gallbladder distention. Pancreas: Normal. No ductal dilation. Spleen: Normal. No splenomegaly. Adrenal glands: Mild nonspecific thickening of the adrenal glands. Kidneys and ureters: Small bilateral renal cysts. The largest is on the right measuring up to 1.5 cm. 1.1 cm hypodensity in the mid right renal pole region laterally does not meet criteria for a simple cyst. This is technically indeterminate and incompletely evaluated, but could be a slightly hyperdense cyst. Recommend follow-up with a multiphase CT or MRI with IV contrast for further evaluation (Bosniak 2 F lesion). Stomach and bowel: Overall, moderate colonic feces, greatest in the rectum and proximal colon. There is mild pericolonic fat stranding around the rectum and trace presacral fluid. Findings are suggestive of acute colitis. The rectum is moderately distended, consider stercoral colitis. Appendix: No evidence of appendicitis. Intraperitoneal space: As above. No free air. Vasculature: Severe atherosclerotic disease. 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 Correlate clinically for Leriche syndrome. Lymph nodes: No enlarged lymph nodes. Urinary bladder: Mildly distended urinary bladder. Reproductive: Unremarkable as visualized. Bones/joints: No evidence of an acute fracture. Soft tissues: Tiny fat containing umbilical hernia. IMPRESSION: 1. Overall, moderate colonic feces, greatest in the rectum and proximal colon. There is mild pericolonic fat stranding around the rectum and trace presacral fluid. Findings are suggestive of acute colitis. The rectum is moderately distended, consider stercoral colitis. 2. 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 Correlate clinically for Leriche syndrome. 3. Small bilateral renal cysts. The largest is on the right measuring up to 1.5 cm. 1.1 cm hypodensity in the mid right renal pole region laterally does not meet criteria for a simple cyst. This is technically indeterminate and incompletely evaluated, but could be a slightly hyperdense cyst. Recommend follow-up with a multiphase CT or MRI with IV contrast for further evaluation (Bosniak 2 F lesion). 4. Other findings as detailed in the body of the report. COMMENTS: Consistent with the [employer]'s Incidental Findings Committee white paper (J Am Ophelia Radiol 2018): Any incidental renal lesion less than 1 cm or classified as too small to characterize, or any incidental cystic renal lesion characterized as simple-appearing, is likely benign. No follow-up imaging i
--- NOTE | 2021-10-17 10:08 | PC.NURSE ---
notified of IV contrast allergy. spoke with pt and have agreed to pre-medicate pt and continue with IV contrast
[2021-10-17 10:13] LABS: Basophils # 0.1 K/mm3 (0-0.2); Basophils % 0.7 % (0.1-2.0); Eosinophils # 0.3 K/mm3 (0.0-0.4); Eosinophils % 3.1 % (0.1-12.0); Hematocrit 51.5 % (42.0-52.0); Hemoglobin 16.2 g/dL (14.1-18.0); Lymphocytes # 1.2 K/mm3 (0.7-4.5); Lymphocytes % 12.7 % (10-50); Mean Corpuscular HGB Conc 31.4 g/dL (31.8-35.4); Mean Corpuscular Hemoglobin 32.2 pg (27.0-31.2); Mean Corpuscular Volume 102.5 fl (80-94); Mean Platelet Volume 8.3 fl (7.4-10.4); Monocytes # 0.5 K/mm3 (0.1-1.0); Monocytes % 5.1 % (1.7-9.3); Neutrophils # 7.5 K/mm3 (1.8-7.8); Neutrophils % 78.3 % (37.0-80.0); Platelet Count 357 K/mm3 (142-424); Red Blood Count 5.03 M/mm3 (4.60-6.20); Red Cell Distribution Width 14.4 % (11.5-17.5); White Blood Count 9.6 K/mm3 (4.8-10.8)
[2021-10-17 10:14] LABS: Alanine Aminotransferase 15 U/L (12-78); Albumin Level 4.2 g/dl (3.5-5.0); Albumin/Globulin Ratio 1.4 (1.1-1.8); Alkaline Phosphatase 74 U/L (38-126); Anion Gap 16.1 mEq/L (5-15); Aspartate Amino Transferase 18 U/L (17-59); Bilirubin,Total 0.5 mg/dl (0.2-1.3); Blood Urea Nitrogen 14 mg/dl (9-20); Calcium 9.7 mg/dl (8.4-10.2); Carbon Dioxide 26 mmol/L (22.0-30.0); Chloride 99 mmol/L (98-107); Creatinine Clearance Estimated 80 mL/min (50-200); Estimated Glomerular Filt Rate 113 ml/min (>60); GFR (African American) 137 ML/MIN (>60); Globulin 2.9 g/dL (1.3-3.2); Glucose 98 mg/dl (74-100); Potassium 4.1 mmoL/L (3.5-5.1); Sodium 137 mmol/L (136-145); Total Protein,Serum 7.1 g/dl (6.3-8.2)
[2021-10-17 10:15] LABS: Lactic Acid 1.3 mmol/L (0.7-2.1); Lipase 35 U/L (23-300)
--- NOTE | 2021-10-17 10:15 | ECG_ITS ---
APPROVED REPORT Exam: Resting ECG HR:69 bpm ECG Measurements Heart Rate 69 AXES ID 184 P 96 QRSd 96 QRS -2 QT 418 T 35 QTc 437 Conclusion SINUS RHYTHM WITH SINUS ARRHYTHMIA NORMAL ECG UNCONFIRMED REPORT Electronically signed by : Roel Barrera MD 10/17/2021 19:02:44
--- NOTE | 2021-10-17 10:23 | PC.NURSE ---
pt to ct
--- NOTE | 2021-10-17 10:24 | PC.NURSE ---
pt to radiology via wheelchair for CT
[2021-10-17 10:27] LABS: Troponin I < 0.01 ng/ml (0.00-0.034)
--- NOTE | 2021-10-17 10:37 | HMH.ITSTN ---
benadryl given for contrast allergy-- overrides and wants scan with contrast -- hives was reaction previous so pre-medication given
--- NOTE | 2021-10-17 11:08 | PC.NURSE ---
attempted to give enema, pt was able to tolerated approx 100cc before needing to go the bathroom.
--- NOTE | 2021-10-17 11:11 | PC.NURSE ---
pt states that he had a BM approx the size of a baseball. PT states he doesnt want anymore of the enema. Magnesium citrate attempted by pt, he states he will drank as much as he can if it dont make him sick. MD carpenter
--- NOTE | 2021-10-17 12:06 | PC.NURSE ---
pt able to drink approx 75% of mag citrate. PT up to the restroom at this time
--- NOTE | 2021-10-17 12:49 | PC.NURSE ---
pt states that he was able to have a BM approx a cup full . PT states that he feels 100% better. aware.
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
== END 2021-10-17 13:15 | disposition home or self-care (01) ==
PROVIDERS: Emergency Provider Emergency Medicine; PCP Emergency Medicine
DX: K59.00 Constipation, unspecified (principal)
CPT/HCPCS: 71045; 74177; 80053; 83605; 83690; 84484; 85025; 93005; 96361; 96374; 96375; 99285; C9803; J2405; Q9967; U0003; U0005

== ENCOUNTER 2021-10-24 17:47 | Emergency (ER) | payer MEDICARE, MEDICAID, SELFPAY ==
--- NOTE | 2021-10-24 18:05 | PC.NURSE ---
ER Full, checked on Pt advised will get a bed as soon as we can.
[2021-10-24 19:40] VITALS: BP 1/0; PULSE 0; RESP 0; TEMP -17.7; TEMP 0; O2SAT 0
== END 2021-10-24 19:59 | disposition left against medical advice (07) ==
LOC: ER 19:44
PROVIDERS: Emergency Provider Emergency Medicine; PCP Emergency Medicine
DX: Z53.21 Procedure and treatment not carried out due to patient leaving prior to being seen by health care provider (principal)

== ENCOUNTER → 2021-11-23 08:23 | Outpatient (CLI) | payer MEDICARE, MEDICAID, SELFPAY | PROVIDERS: PCP Emergency Medicine; Visit Provider Internal Medicine Gastroenterology | DX: U07.1 COVID-19 (principal) | CPT/HCPCS: C9803; U0003; U0005 ==

== ENCOUNTER → 2022-01-18 14:37 | Outpatient (CLI) | payer MEDICARE, MEDICAID, SELFPAY ==
[2022-01-18 18:14] LABS: Basophils # 0.1 K/mm3 (0-0.2); Basophils % 0.4 % (0.1-2.0); Eosinophils # 0.1 K/mm3 (0.0-0.4); Eosinophils % 0.7 % (0.1-12.0); Hematocrit 53.7 % (42.0-52.0); Hemoglobin 17.1 g/dL (14.1-18.0); Lymphocytes # 1.8 K/mm3 (0.7-4.5); Lymphocytes % 12.6 % (10-50); Mean Corpuscular HGB Conc 31.9 g/dL (31.8-35.4); Mean Corpuscular Hemoglobin 32.3 pg (27.0-31.2); Mean Corpuscular Volume 101.3 fl (80-94); Mean Platelet Volume 9.9 fl (7.4-10.4); Monocytes # 0.9 K/mm3 (0.1-1.0); Monocytes % 6.3 % (1.7-9.3); Neutrophils # 11.3 K/mm3 (1.8-7.8); Platelet Count 626 K/mm3 (142-424); Red Cell Distribution Width 13.6 % (11.5-17.5); White Blood Count 14.1 K/mm3 (4.8-10.8)
[2022-01-18 18:20] LABS: Alanine Aminotransferase 13 U/L (12-78); Albumin Level 2.5 g/dl (3.5-5.0); Alkaline Phosphatase 253 U/L (38-126); Anion Gap 16.8 mEq/L (5-15); Aspartate Amino Transferase 20 U/L (17-59); Bilirubin,Total 0.7 mg/dl (0.2-1.3); Blood Urea Nitrogen 15 mg/dl (9-20); Calcium 8.5 mg/dl (8.4-10.2); Carbon Dioxide 23 mmol/L (22.0-30.0); Chloride 96 mmol/L (98-107); Estimated Glomerular Filt Rate 135 ml/min (>60); GFR (African American) 164 ML/MIN (>60); Globulin 2.6 g/dL (1.3-3.2); Glucose 119 mg/dl (74-100); Potassium 3.8 mmoL/L (3.5-5.1); Sodium 132 mmol/L (136-145); Total Protein,Serum 5.1 g/dl (6.3-8.2)
== END ==
PROVIDERS: PCP Emergency Medicine; Visit Provider Emergency Medicine
DX: E11.42 Type 2 diabetes mellitus with diabetic polyneuropathy (principal)
CPT/HCPCS: 80053; 85025

== ENCOUNTER 2022-01-19 10:42 | Observation (INO) | payer MEDICARE, MEDICAID, SELFPAY ==
[2022-01-19] VITALS (25 sets, daily range): BP systolic 78–120; BP diastolic 45–85; PULSE 78–127; RESP 16–24; TEMP 36.2–36.7; O2SAT 92–100; BMI 21.2; BMI 20.9
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
--- NOTE | 2022-01-19 11:11 | CT_ITS ---
FINAL REPORT CLINICAL HISTORY: abd pain, left lower FINDINGS: Axial CT images of the abdomen and pelvis were obtained without intravenous contrast. Coronal reformatted images were also obtained.This study was performed with techniques to keep radiation doses as low as reasonably achievable (ALARA). Individualized dose reduction techniques using automated exposure control or adjustment of mA and/or kV according to the patient''s size were employed. Abdomen: The lung bases are clear. There is fluid in the distal thoracic esophagus which may be related to reflux or possible distal stricture. There is no evidence of renal stone or hydronephrosis.The liver, spleen and pancreas have an unremarkable, unenhanced appearance. No mass or adenopathy is seen. There are severe arterial calcifications with high-grade stenosis versus occlusion of the distal abdominal aorta and right common iliac artery. Pelvis: The entire colon is distended and stool-filled consistent with severe constipation it with fecal impaction. There is mild wall thickening of the descending and sigmoid colon and rectum with adjacent inflammation which may represent stercoral colitis versus other mild colitis. Fluid-filled small bowel loops are nonspecific. The appendix is stool filled but otherwise normal. The urinary bladder is unremarkable. IMPRESSION: Fluid in the distal thoracic esophagus may represent reflux or possible distal stricture. Severe arterial calcifications with high-grade stenosis versus occlusion of the distal abdominal aorta and right common iliac artery. Severe constipation and fecal impaction with wall thickening of the descending and sigmoid colon and rectum which may represent stercoral colitis versus other mild colitis. Reviewed, Interpreted and Dictated by Germain Beth III, MD Transcribed by Willa Stein Authenticated and [facility]
--- NOTE | 2022-01-19 11:13 | HMH.EDGENADL ---
Discharge Plan Disposition Patient Disposition: Admitted As Inpatient Condition: Fair Prescriptions Prescriptions: No Action metoclopramide HCl [Reglan] 5 mg tablet 5 mg PO BID Qty: 60 2RF Rx Instructions: administer 30 minutes before meals ondansetron HCl 4 mg tablet 4 mg PO Q8H PRN (Reason: nausea and vomiting) Qty: 30 2RF simvastatin 20 mg tablet 20 mg PO DAILY lisinopril 20 mg tablet 20 mg PO DAILY hydrocodone-acetaminophen 5-325 mg tablet 1 tab PO BID Qty: 60 0RF lactulose 20 gram/30 mL solution 20 g PO QID Qty: 1200 0RF gabapentin 600 mg tablet 600 mg PO TID 30 Days Qty: 90 0RF aspirin 81 mg tablet,delayed release (DR/EC) 81 mg PO DAILY Label Comments: take 1 Tablet BY MOUTH ONCE DAILY albuterol sulfate 90 mcg/actuation HFA aerosol inhaler 2 puff IH Q4HP PRN (Reason: Wheezing) Qty: 1 4RF peg 3350-electrolytes [GaviLyte-G] 236-22.74-6.74 -5.86 gram recon soln 240 ml PO Q10M Qty: 240 0RF Rx Instructions: until fecal effluent is clear- follow mailed instructions omeprazole 20 mg capsule,delayed release(DR/EC) 20 mg PO DAILY Rx Instructions: TAKE ONE CAPSULE BY MOUTH EVERY DAY Anoro Ellipta 62.5-25 mcg/actuation blister with device 1 ea inhalation DAILY Rx Instructions: Inhale 1 puff every day by inhalation route as directed. Referrals Follow up/Referrals: Addison Colón MD [Primary Care Provider] - See instructions Clinical Impressions Clinical Impression: Stercoral colitis Discharge ED Provider: David Taylor General Adult HPI General Chief complaint: Recheck/Abnormal Lab/Rx Stated complaint: Physician referral, Vomitting, Tacocardia Time Seen by Provider: 01/19/22 11:02 Source of Information: Patient Limitations: No Limitations History of Present Illness HPI narrative: Patient presents with several week history of progressively worsening generalized weakness. He describes symptoms as moderate to severe. He denies chest pain or shortness of breath at this time he does note some abdominal distention and discomfort and states he has not had a bowel movement in weeks to months. He does note vomiting. He was seen at a local physician office and referred here today for further evaluation of his weakness. Related Data Home Medications Medication Instructions Recorded Confirmed aspirin 81 mg tablet,delayed 81 mg PO DAILY Blood thinner 09/16/21 01/19/22 release omeprazole 20 mg capsule,delayed 20 mg PO DAILY Reflux/Acid reflux 11/24/21 01/19/22 release umeclidinium 62.5 mcg-vilanterol 1 ea inhalation DAILY COPD 11/24/21 01/19/22 25 mcg/actuation powdr for inhalation (Anoro Ellipta) lisinopril 20 mg tablet 20 mg PO DAILY 01/18/22 01/19/22 simvastatin 20 mg tablet 20 mg PO DAILY 01/18/22 01/19/22 Previous Rx's Medication Instructions Recorded albuterol sulfate 90 mcg/actuation 2 puff inhalation Q4HP PRN 11/16/21 aerosol inhaler Wheezing #1 ea metoclopramide HCl 5 mg tablet 5 mg PO BID #60 tabs 11/24/21 (Reglan) ondansetron HCl 4 mg tablet 4 mg PO Q8H PRN nausea and 11/24/21 vomiting #30 tabs peg 3350-electrolytes 236 240 ml PO Q10M #240 mL 12/21/21 gram-22.74 gram-6.74 gram-5.86 gram solution (GaviLyte-G) gabapentin 600 mg tablet 600 mg PO TID Restless leg 30 days 01/18/22 #90 tabs hydrocodone 5 mg-acetaminophen 325 1 tab PO BID MODERATE TO SEVERE 01/18/22 mg tablet PAIN #60 tabs lactulose 20 gram/30 mL oral 20 g (30 mL) PO QID constipation 01/18/22 solution #1,200 mL Allergies Allergy/AdvReac Type Severity Reaction Status Date / Time Iodinated Contrast Media Allergy Mild hives Verified 01/19/22 10:22 [facility] Medical History (Updated 01/19/22 @ 13:14 by David Taylor MD) Abnormal abdominal CT scan Asthma Chronic aorto-iliac occlusion syndrome COPD (chronic obstructive pulmonary disease) Diabetes mellitus, type 2 History of gastroesophageal reflux (GERD)
--- NOTE | 2022-01-19 11:16 | PC.NURSE ---
pt taken to ct by radiology
[2022-01-19 11:18] LABS: Chloride 98 mmol/L (98-107); Potassium 3.2 mmoL/L (3.5-5.1); Sodium 129 mmol/L (136-145)
[2022-01-19 11:21] LABS: Alanine Aminotransferase 22 U/L (12-78); Albumin Level 2.8 g/dl (3.5-5.0); Alkaline Phosphatase 263 U/L (38-126); Anion Gap 11.2 mEq/L (5-15); Aspartate Amino Transferase 34 U/L (17-59); Bilirubin,Total 0.6 mg/dl (0.2-1.3); Blood Urea Nitrogen 13 mg/dl (9-20); Calcium 8.4 mg/dl (8.4-10.2); Carbon Dioxide 23 mmol/L (22.0-30.0); Creatinine Clearance Estimated 68 mL/min (50-200); Estimated Glomerular Filt Rate 113 ml/min (>60); GFR (African American) 137 ML/MIN (>60); Glucose 145 mg/dl (74-100); Lipase 22 U/L (23-300)
[2022-01-19 11:22] LABS: Basophils # 0.1 K/mm3 (0-0.2); Basophils % 0.5 % (0.1-2.0); Eosinophils # 0.1 K/mm3 (0.0-0.4); Eosinophils % 0.8 % (0.1-12.0); Globulin 2.9 g/dL (1.3-3.2); Hematocrit 54.4 % (42.0-52.0); Hemoglobin 17.2 g/dL (14.1-18.0); Lymphocytes # 2.5 K/mm3 (0.7-4.5); Lymphocytes % 14.7 % (10-50); Mean Corpuscular HGB Conc 31.7 g/dL (31.8-35.4); Mean Platelet Volume 8.5 fl (7.4-10.4); Monocytes % 5.9 % (1.7-9.3); Platelet Count 656 K/mm3 (142-424); Red Blood Count 5.38 M/mm3 (4.60-6.20); Red Cell Distribution Width 13.6 % (11.5-17.5); Total Protein,Serum 5.7 g/dl (6.3-8.2); White Blood Count 16.7 K/mm3 (4.8-10.8)
[2022-01-19 11:25] LABS: MANUAL DIFFERENTIAL MANUAL DIFFERENTIAL (MANUAL DIFF)
--- NOTE | 2022-01-19 11:29 | PC.NURSE ---
pt broughtr back from radiology and hooked back up
[2022-01-19 11:44] LABS: Lymphocytes % 19 % (10-50); Macrocytosis 1+; Monocytes % 3 % (2-9); Neutrophils % 78 % (42-76); Platelet Estimate Moderate Increase; Total Cells Counted 100
--- NOTE | 2022-01-19 12:19 | PC.NURSE ---
pt up to bathroom for urine sample
--- NOTE | 2022-01-19 12:24 | PC.NURSE ---
pt unable to urinate at this time
--- NOTE | 2022-01-19 13:08 | PC.NURSE ---
talked to the hospitalist Earnestine for admission
--- NOTE | 2022-01-19 13:15 | HMH.EDGENADL ---
Discharge Plan Disposition Patient Disposition: Admitted As Inpatient Condition: Fair Prescriptions Prescriptions: No Action metoclopramide HCl [Reglan] 5 mg tablet 5 mg PO BID Qty: 60 2RF Rx Instructions: administer 30 minutes before meals ondansetron HCl 4 mg tablet 4 mg PO Q8H PRN (Reason: nausea and vomiting) Qty: 30 2RF simvastatin 20 mg tablet 20 mg PO DAILY lisinopril 20 mg tablet 20 mg PO DAILY hydrocodone-acetaminophen 5-325 mg tablet 1 tab PO BID Qty: 60 0RF lactulose 20 gram/30 mL solution 20 g PO QID Qty: 1200 0RF gabapentin 600 mg tablet 600 mg PO TID 30 Days Qty: 90 0RF aspirin 81 mg tablet,delayed release (DR/EC) 81 mg PO DAILY Label Comments: take 1 Tablet BY MOUTH ONCE DAILY albuterol sulfate 90 mcg/actuation HFA aerosol inhaler 2 puff IH Q4HP PRN (Reason: Wheezing) Qty: 1 4RF peg 3350-electrolytes [GaviLyte-G] 236-22.74-6.74 -5.86 gram recon soln 240 ml PO Q10M Qty: 240 0RF Rx Instructions: until fecal effluent is clear- follow mailed instructions omeprazole 20 mg capsule,delayed release(DR/EC) 20 mg PO DAILY Rx Instructions: TAKE ONE CAPSULE BY MOUTH EVERY DAY Anoro Ellipta 62.5-25 mcg/actuation blister with device 1 ea inhalation DAILY Rx Instructions: Inhale 1 puff every day by inhalation route as directed. Referrals Follow up/Referrals: Addison Colón MD [Primary Care Provider] - See instructions Clinical Impressions Clinical Impression: Stercoral colitis Discharge ED Provider: David Taylor Adult [facility] General Chief complaint: Recheck/Abnormal Lab/Rx Stated complaint: Physician referral, Vomitting, Tacocardia Time Seen by Provider: 01/19/22 11:02 Source of Information: Patient Limitations: No Limitations Related Data Home Medications Medication Instructions Recorded Confirmed aspirin 81 mg tablet,delayed 81 mg PO DAILY Blood thinner 09/16/21 01/19/22 release omeprazole 20 mg capsule,delayed 20 mg PO DAILY Reflux/Acid reflux 11/24/21 01/19/22 release umeclidinium 62.5 mcg-vilanterol 1 ea inhalation DAILY COPD 11/24/21 01/19/22 25 mcg/actuation powdr for inhalation (Anoro Ellipta) lisinopril 20 mg tablet 20 mg PO DAILY 01/18/22 01/19/22 simvastatin 20 mg tablet 20 mg PO DAILY 01/18/22 01/19/22 Previous Rx's Medication Instructions Recorded albuterol sulfate 90 mcg/actuation 2 puff inhalation Q4HP PRN 11/16/21 aerosol inhaler Wheezing #1 ea metoclopramide HCl 5 mg tablet 5 mg PO BID #60 tabs 11/24/21 (Reglan) ondansetron HCl 4 mg tablet 4 mg PO Q8H PRN nausea and 11/24/21 vomiting #30 tabs peg 3350-electrolytes 236 240 ml PO Q10M #240 mL 12/21/21 gram-22.74 gram-6.74 gram-5.86 gram solution (GaviLyte-G) gabapentin 600 mg tablet 600 mg PO TID Restless leg 30 days 01/18/22 #90 tabs hydrocodone 5 mg-acetaminophen 325 1 tab PO BID MODERATE TO SEVERE 01/18/22 mg tablet PAIN #60 tabs lactulose 20 gram/30 mL oral 20 g (30 mL) PO QID constipation 01/18/22 solution #1,200 mL Allergies Allergy/AdvReac Type Severity Reaction Status Date / Time Iodinated Contrast Media Allergy Mild hives Verified 01/19/22 10:22 [facility] Medical History (Updated 01/19/22 @ 13:14 by David Taylor MD) Abnormal abdominal CT scan Asthma Chronic aorto-iliac occlusion syndrome COPD (chronic obstructive pulmonary disease) Diabetes mellitus, type 2 History of gastroesophageal reflux (GERD) Leriche syndrome Nausea and vomiting Weakness Surgical History No significant past surgical history Family History Other No significant family history Social History Smoking Status: Current every day smoker tobacco type: cigarettes packs per day: 1 years smoked: 40 second hand exposure: No alcohol intake: f
--- NOTE | 2022-01-19 13:34 | PC.NURSE ---
talked to care mgn about admission
[2022-01-19 13:35] LABS: Coronavirus 19, PCR Not Detected (NotDetected); Influenza A, PCR Not Detected (NotDetected); Influenza B, PCR Not Detected (NotDetected)
--- NOTE | 2022-01-19 14:32 | PC.NURSE ---
report called to Malorie MATSON
--- NOTE | 2022-01-19 14:45 | EXP.CARD.CON ---
History of Present Illness History of Present Illness Consult date: 01/19/22 Requesting physician: Maryam Colby Chief complaint: PVD, Leriche syndrome Additional Medical History:: Significant past medical hx: Chronic aorto-iliac occlusion syndrome COPD GERD Chronic narcotic use 01/19/2022 CT ABD/Pelvis IMPRESSION: Fluid in the distal thoracic esophagus may represent reflux or possible distal stricture.? Severe arterial calcifications with high-grade stenosis versus occlusion of the distal abdominal aorta and right common iliac artery.? Severe constipation and fecal impaction with wall thickening of the descending and sigmoid colon and rectum which may represent stercoral colitis versus other mild colitis. History of present illness: 66-year-old white male with above past medical history, presented to cardiology office today from primary care provider's office with complaints of nausea vomiting and generalized weakness for months. Patient reports cannot eat due to nausea and vomiting and states has lost over 100 pounds in the last year. Reports no BM in the past month and abdominal distention. Reports mild abdominal pain. Patient was vomiting on presentation and was hypotensive with systolic blood pressure being in the 70. Patient was taken directly to ER for further evaluation. CT abdomen pelvis showed fluid in the distal thoracic esophagus representing possible distal stricture. Severe arterial calcifications with high-grade stenosis versus occlusion of the distal abdominal aorta and right common iliac artery. Severe constipation and fecal impaction with wall thickening of the descending and sigmoid colon and rectum which may represent stercoral colitis versus other mild colitis. Labs as follows: WC BC 16.7, MCV 101, hematocrit 54.4, sodium 129, potassium 3.2, creatinine 0.70, glucose 145. EKG showed sinus tach in the 130s. Patient denies chest pain or shortness of breath. Report reports mild bilateral lower extremity pain sometimes with activity. [facility] Medical History (Updated 01/19/22 @ 13:14 by David Taylor MD) Abnormal abdominal CT scan Asthma Chronic aorto-iliac occlusion syndrome COPD (chronic obstructive pulmonary disease) Diabetes mellitus, type 2 History of gastroesophageal reflux (GERD) Leriche syndrome Nausea and vomiting Weakness Surgical History No significant past surgical history Family History Other No significant family history Social History (Reviewed 01/19/22 @ 10:21 by Madeline Mccoy Smoking Status: Current every day smoker tobacco type: cigarettes packs per day: 1 years smoked: 40 second hand exposure: No alcohol intake: former substance use type: denies use current occupational status: retired Travel in the last 8 weeks: None household members: none housing: apartment education level: middle school caffeine: No special benjie needs: No agree to transfusion: No do you feel safe at home: Yes victim of physical abuse: No victim of emotional abuse: No victim of sexual abuse: No would you like helpful sources: No Exam Data for Last 24 hours Vital signs and Labs for Last 24 Hours: Temp Pulse Resp BP Pulse Ox 97.6 F 104 H 21 103/72 L 95 01/19/22 10:42 01/19/22 14:30 01/19/22 14:30 01/19/22 14:30 01/19/22 14:30 Laboratory Results - last 24 hr 01/19/22 10:55: WBC 16.7 H, RBC 5.38, Hgb 17.2, Hct 54.4 H, MCV 101.0 H, MCH 32.0 H, MCHC 31.7 L, RDW 13.6, Plt Count 656 H, MPV 8.5, Neut % (Auto) 78.0, Lymph % (Auto) 14.7, [place] % (Auto) 5.9, Eos % (Auto) 0.8, Baso % (Auto) 0.5, Neut # (Auto) 13.0 H, Lymph # (Auto) 2.5, [place] # (Auto) 1.0, Eos # (Auto) 0.1, Baso # (Auto) 0.1, Total Counted 100, Neutrophils % (Manual) 78 H, Lymphocytes % (Manual) 19, Monocytes % (Manual) 3, Platelet Estimate Moderate increase, Macrocytosis 1+ 01/19/22 10:
--- NOTE | 2022-01-19 14:51 | PC.NURSE ---
patient arrived to floor by wheelchair from ED
--- NOTE | 2022-01-19 15:16 | DIET.NUTRFU ---
RD reviewed weights from previous admits. He was admitted back on 07/28 with reported wt loss of 30# and CBW of 154# (70kg). CBW is 140# (64kg). He had complained of everything tasting metallic post COVID. He was put on glucerna in July, will reorder once oral diet is appropriate. He is currently NPO for cardiac consult.
[2022-01-19 16:23] LABS: POC Glucose,Bedside 140 (70-110)
--- NOTE | 2022-01-19 16:23 | P.PN_ITS ---
[facility] Medical History Abnormal abdominal CT scan Asthma Chronic aorto-iliac occlusion syndrome COPD (chronic obstructive pulmonary disease) Diabetes mellitus, type 2 History of gastroesophageal reflux (GERD) Leriche syndrome Nausea and vomiting Weakness Surgical History No significant past surgical history Family History Other No significant family history Social History Smoking Status: Current every day smoker tobacco type: cigarettes packs per day: 1 years smoked: 40 second hand exposure: No alcohol intake: former substance use type: denies use current occupational status: retired Travel in the last 8 weeks: None adopted: No caregiver/support person: Yes (FRANKO KAY) foster care: No household members: friend(s) and none housing: apartment lives independently: No marital status: number of children: 3 number of grandchildren: 9 education level: middle school service: No prison: No current occupational exposures/hazards: No pets and animals: No leisure activities: other sexually active: No well-balanced diet: rarely or never caffeine: No physical activity: none special benjie needs: No agree to transfusion: No do you feel safe at home: Yes victim of physical abuse: No victim of emotional abuse: No victim of sexual abuse: No would you like helpful sources: No [facility] Anesthesia Checklist Patient Identification Patient Identification: Arm Band and Verbal (Name & ) Structural Data Admitted From: Inpatient Planned Operative Procedure/s: Fecal disimpaction Consent for Planned Operative Procedure(s) Verified: Yes Airway Assessment C-Spine Mobility Assessed: Yes TMJ Mobility Assessed: Yes Dentition: Poor Dentition Neurological Assessment Level of Consciousness: Awake Hx Seizures: No Numbness or tingling in extremities: No Anesthesia Plan Anesthesia Risk discussed: Yes Anesthesia Plan: Verified ASA Class: III (E) Anesthesia Type: MAC
--- NOTE | 2022-01-19 16:23 | EXP.SURG.CON ---
History of Present Illness *Admission Date: 01/19/22 *Reason for visit:: Fecal impaction *History of present illness: This is a 66-year-old gentleman with a complex past medical history who presented to emergency department with increasing abdominal distention and weakness. Evaluation included a CT scan that revealed significant colonic distention and possible mild stercoral colitis versus colitis of undetermined etiology. Surgical service was consulted for further evaluation. Forwarded from emergency department evaluation: General Adult HPI General Chief complaint: Recheck/Abnormal Lab/Rx Stated complaint: Physician referral, Vomitting, Tacocardia Time Seen by Provider: 01/19/22 11:02 Source of Information: Patient Limitations: No Limitations History of Present Illness HPI narrative: Patient presents with several week history of progressively worsening generalized weakness.? He describes symptoms as moderate to severe.? He denies chest pain or shortness of breath at this time he does note some abdominal distention and discomfort and states he has not had a bowel movement in weeks to months.? He does note vomiting.? He was seen at a local physician office and referred here today for further evaluation of his weakness. Forwarded from cardiology consultation note: History of Present Illness Consult date: 01/19/22 Requesting physician: Maryam Colby Chief complaint: PVD, Leriche syndrome Additional Medical History:: Significant past medical hx: Chronic aorto-iliac occlusion syndrome COPD GERD Chronic narcotic use History of present illness: 66-year-old white male with above past medical history, presented to cardiology office today from primary care provider's office with complaints of nausea vomiting and generalized weakness for months.? Patient reports cannot eat due to nausea and vomiting and states has lost over 100 pounds in the last year.? Reports no BM in the past month and abdominal distention.? Reports mild abdominal pain. Patient was vomiting on presentation and was hypotensive with systolic blood pressure being in the 70.? Patient was taken directly to ER for further evaluation.? CT abdomen pelvis showed fluid in the distal thoracic esophagus representing possible distal stricture.? Severe arterial calcifications with high-grade stenosis versus occlusion of the distal abdominal aorta and right common iliac artery.? Severe constipation and fecal impaction with wall thickening of the descending and sigmoid colon and rectum which may represent stercoral colitis versus other mild colitis.? Labs as follows: WC BC 16.7, MCV 101, hematocrit 54.4, sodium 129, potassium 3.2, creatinine 0.70, glucose 145.? EKG showed sinus tach in the 130s.? Patient denies chest pain or shortness of breath.? Report reports mild bilateral lower extremity pain sometimes with activity.? PFSH [facility] Medical History (Updated 01/19/22 @ 16:29 by Ganesh Galindo MD) Abnormal abdominal CT scan Asthma Chronic aorto-iliac occlusion syndrome COPD (chronic obstructive pulmonary disease) Diabetes mellitus, type 2 History of gastroesophageal reflux (GERD) Leriche syndrome Nausea and vomiting Weakness Surgical History No significant past surgical history Family History Other No significant family history Social History Smoking Status: Current every day smoker tobacco type: cigarettes packs per day: 1 years smoked: 40 second hand exposure: No alcohol intake: former substance use type: denies use current occupational status: retired Travel in the last 8 weeks: None adopted: No caregiver/support person: Yes (FRANKO oliveros
--- NOTE | 2022-01-19 17:02 | PC.NURSE ---
PT IS OFF THE FLOOR AT THIS TIME FOR PROCEDURE. PT ONLY TOLERATED 1 MINERAL OIL ENEMA BEFORE LEAVING THE FLOOR. PT WAS UNABLE TO TOLERATE DIGITAL DISIMPACTION. PT'S ABDOMEN FIRM/DISTENDED WITH HYPOACTIVE BOWEL SOUNDS. LUNG SOUNDS HAVE SCATTERED WHEEZES. WILL CONTINUE TO MONITOR.
--- NOTE | 2022-01-19 17:29 | HMH.SCOPE ---
Procedure: Date: 01/19/22 Patient Date of :: 1955 Procedure Performed:: Endoscopic/manual fecal disimpaction Indications:: Fecal impaction Performing Provider:: Ganesh Galindo MD Referring Provider:: Hospitalist Service Sedation:: Monitored anesthesia care Procedure:: After informed consent was obtained the patient was taken to the endoscopy suite. Sedation ensued after the patient was transferred to the left lateral decubitus position. Pulse, blood pressure, and oxygen saturation were monitored throughout the procedure. Digital rectal exam revealed firm/impacted stool throughout the anal canal and rectal vault. Manual disimpaction to the degree possible with a combination of gentle endoscopic evaluation/irrigation was completed. When no additional quantity of impacted material was able to be evacuated the patient was transferred to recovery in stable condition. Please see findings and specimens below for detail. Findings:: Firm/impacted stool throughout anal canal/rectal vault Specimens:: None Recommendations:: Continue medical management as per the Hospitalist Service Complications:: No immediate Estimated blood obtained (mL): 0
--- NOTE | 2022-01-19 17:44 | SUR.PHASEI ---
1736- detailed report called to bart hernandez on [facility] floor 1738- pt left in stable condition with bart carty in pt room. All VSS, bed in powest position with side rails up
--- NOTE | 2022-01-19 18:19 | EXP.HP ---
History of Present Illness *Admission Date: 01/19/22 *Reason for visit:: Abdominal pain and weakness *History of present illness: This is a 66-year-old gentleman with a complex past medical history who presented to emergency department with increasing abdominal distention and weakness. Patient presents with several week history of progressively worsening generalized weakness.? He describes symptoms as moderate to severe.? He denies chest pain or shortness of breath at this time he does note some abdominal distention and discomfort and states he has not had a bowel movement in weeks to months.? He does note vomiting.? He was seen at a local physician office and referred here today for further evaluation of his weakness. Evaluation included a CT scan that revealed significant colonic distention and possible mild stercoral colitis versus colitis of undetermined etiology. Surgical service was consulted for further evaluation. Patient states he has not had a bowel movement for approximately 2 months. Was sent to ER by cardiology clinic, where he was being evaluated today for peripheral vascular disease involving the distal aorta and common iliacs. Due to his symptoms that he described in clinic he was referred to ER. Upon arrival oral laxatives and mineral oil enemas were given. Surgery was consulted and took him to the OR for disimpaction. [facility] Medical History Abnormal abdominal CT scan Asthma Chronic aorto-iliac occlusion syndrome COPD (chronic obstructive pulmonary disease) Diabetes mellitus, type 2 History of gastroesophageal reflux (GERD) Leriche syndrome Nausea and vomiting Weakness Surgical History No significant past surgical history Family History Other No significant family history Social History Smoking Status: Current every day smoker tobacco type: cigarettes packs per day: 1 years smoked: 40 second hand exposure: No alcohol intake: former substance use type: denies use current occupational status: retired Travel in the last 8 weeks: None adopted: No caregiver/support person: Yes (FRANKO KAY) foster care: No household members: friend(s) and none housing: apartment lives independently: No marital status: number of children: 3 number of grandchildren: 9 education level: middle school service: No assisted: No current occupational exposures/hazards: No pets and animals: No leisure activities: other sexually active: No well-balanced diet: rarely or never caffeine: No physical activity: none special benjie needs: No agree to transfusion: No do you feel safe at home: Yes victim of physical abuse: No victim of emotional abuse: No victim of sexual abuse: No would you like helpful sources: No Review of Systems Constitutional Constitutional: Reports as per HPI, Reports fatigue, Denies fever(s) and Reports weight loss Eyes Eyes: Reports system reviewed and no additional complaints, except as documented ENT Ears, Nose, Mouth, and Throat: Reports system reviewed and no additional complaints, except as documented, Reports dry mouth and Denies odynophagia Comments: Poor p.o. and *Cardiovascular Cardiovascular: Denies chest pain, Denies chest pain with activity, Reports claudication, Reports dyspnea, Denies lightheadedness and Denies orthopnea *Respiratory Respiratory: Reports dyspnea *Gastrointestinal Gastrointestinal: Reports bloating, Reports change in bowel habits, Denies coffee ground emesis, Reports constipation, Reports cramping, Denies diarrhea, Denies melena, Reports nausea, Denies odynophagia and Reports vomiting Comments: No BM in 2-month *Genitourinary Genitourinary: Reports system reviewed and no additio
--- NOTE | 2022-01-19 21:08 | PC.NURSE ---
Verbal order per Maryam Colby to D/C LR @ 150 after 12 hrs.
[2022-01-19 23:14] LABS: POC Glucose,Bedside 133 (70-110)
[2022-01-20] VITALS (8 sets, daily range): BP systolic 91–120; BP diastolic 53–70; PULSE 89–110; RESP 16–18; TEMP 36.7–37.1; O2SAT 92–94; BMI 21.7
[2022-01-20 00:59] LABS: Microscopic, Urine URINE MICROSCOPIC (MICROSCOPIC)
[2022-01-20 01:03] LABS: Appearance,Urine CLEAR (Clear); Blood, Urine Negative (Negative); Color,Urine BROWN (Yellow); Glucose,Urine (UA) TRACE (Negative); Ketones,Urine TRACE (Negative); Leukocyte Esterase,Urine Negative (Negative); Nitrate,Urine POSITIVE (Negative); PH,Urine 6.5 (5.0-8.5); Protein,Urine 1+ (Negative); Specific Gravity, Urine 1.025 (1.005-1.030)
[2022-01-20 01:16] LABS: Bacteria,Urine 1+ /lpf; Bilirubin,Urine Negative (Negative); Mucus,Urine 2+ /lpf
--- NOTE | 2022-01-20 01:27 | PC.NURSE ---
Urine sample sent to lab at this time. Urine is clear and tea colored. Pt has had 3 BMs thus far, noted to be mild diarrhea but has built up consistency farther into shift. Pt report given to Tawnya Arechiga to assume pt care.
--- NOTE | 2022-01-20 05:35 | PC.NURSE ---
pt has rested well throughout shift, pt is alert and oriented and able to make needs known, bowel sounds remain active in all quads, abdomen remains distended, pt states feels better bm x 1 since assuming care at 0100, Pt is ambulating to bathroom x 2 assist with no diffficulty. call light within reach
[2022-01-20 05:41] LABS: POC Glucose,Bedside 129 (70-110)
[2022-01-20 08:05] LABS: Alanine Aminotransferase 14 U/L (12-78); Albumin Level 2.3 g/dl (3.5-5.0); Alkaline Phosphatase 227 U/L (38-126); Anion Gap 13.9 mEq/L (5-15); Aspartate Amino Transferase 22 U/L (17-59); Bilirubin,Total 0.6 mg/dl (0.2-1.3); Blood Urea Nitrogen 13 mg/dl (9-20); Calcium 7.8 mg/dl (8.4-10.2); Carbon Dioxide 25 mmol/L (22.0-30.0); Chloride 95 mmol/L (98-107); Chol/HDL Ratio 4.5 (1-3.5); Cholesterol 103 mg/dl (140-200); Creatinine Clearance Estimated 70 mL/min (50-200); Estimated Glomerular Filt Rate 167 ml/min (>60); GFR (African American) 202 ML/MIN (>60); Globulin 2.4 g/dL (1.3-3.2); Glucose 127 mg/dl (74-100); HDL Cholesterol 23 mg/dl (40-60); Magnesium 1.9 mg/dl (1.6-2.3); Phosphorous 2.6 mg/dl (2.5-4.5); Sodium 131 mmol/L (136-145); Total Protein,Serum 4.7 g/dl (6.3-8.2); Triglycerides 144 mg/dl (30-150); VLDL Cholesterol 29 mg/dL (0-40)
[2022-01-20 08:06] LABS: Basophils # 0.1 K/mm3 (0-0.2); Basophils % 0.3 % (0.1-2.0); Eosinophils % 0.1 % (0.1-12.0); Hematocrit 46.9 % (42.0-52.0); Lymphocytes # 1.1 K/mm3 (0.7-4.5); Lymphocytes % 6.5 % (10-50); Mean Corpuscular HGB Conc 32.7 g/dL (31.8-35.4); Mean Corpuscular Hemoglobin 32.3 pg (27.0-31.2); Mean Corpuscular Volume 98.8 fl (80-94); Mean Platelet Volume 8.5 fl (7.4-10.4); Monocytes # 1.1 K/mm3 (0.1-1.0); Monocytes % 6.4 % (1.7-9.3); Neutrophils % 86.7 % (37.0-80.0); Platelet Count 509 K/mm3 (142-424); Red Blood Count 4.74 M/mm3 (4.60-6.20); Red Cell Distribution Width 13.7 % (11.5-17.5); White Blood Count 17.3 K/mm3 (4.8-10.8)
[2022-01-20 08:08] LABS: Hemoglobin 15.3 g/dL (14.1-18.0); MANUAL DIFFERENTIAL MANUAL DIFFERENTIAL (MANUAL DIFF)
[2022-01-20 08:14] LABS: Potassium 2.9 mmoL/L (3.5-5.1)
--- NOTE | 2022-01-20 08:14 | PC.NURSE ---
0814- Spoke to Love in lab regarding critical K+ of 2.9. Verified name, and room number 0842- Spoke to MD Mark Colby regarding critical lab value, 40meq of PO K+ ONCE NOW and x1 IV run of K+ ONCE NOW
[2022-01-20 08:15] LABS: Direct LDL Cholesterol 57.62 mg/dL (100-129)
[2022-01-20 08:25] LABS: Lymphocytes % 8 % (10-50); Monocytes % 9 % (2-9); Neutrophils % 83 % (42-76); Platelet Estimate Slight Increase; RBC Morphology Normal; Total Cells Counted 100
--- NOTE | 2022-01-20 09:32 | PC.NURSE ---
0926- Spoke to Felicitas at [facility]. No beds available at this time
--- NOTE | 2022-01-20 10:28 | EXP.SURG.PN ---
Subjective Patient reports: no new complaints, feels better and bowel movement Exam Data for Last 24 hours Vital signs and Labs for Last 24 Hours: Temp Pulse Resp BP Pulse Ox 98.7 F 108 H 16 110/65 92 L 01/20/22 08:00 01/20/22 08:00 01/20/22 08:00 01/20/22 08:00 01/20/22 08:00 Laboratory Results - last 24 hr 01/19/22 10:55: WBC 16.7 H, RBC 5.38, Hgb 17.2, Hct 54.4 H, MCV 101.0 H, MCH 32.0 H, MCHC 31.7 L, RDW 13.6, Plt Count 656 H, MPV 8.5, Neut % (Auto) 78.0, Lymph % (Auto) 14.7, [place] % (Auto) 5.9, Eos % (Auto) 0.8, Baso % (Auto) 0.5, Neut # (Auto) 13.0 H, Lymph # (Auto) 2.5, [place] # (Auto) 1.0, Eos # (Auto) 0.1, Baso # (Auto) 0.1, Total Counted 100, Neutrophils % (Manual) 78 H, Lymphocytes % (Manual) 19, Monocytes % (Manual) 3, Platelet Estimate Moderate increase, Macrocytosis 1+ 01/19/22 10:55: Sodium 129 L, Potassium 3.2 L, Chloride 98, Carbon Dioxide 23, Anion Gap 11.2, BUN 13, Creatinine 0.70, Estimated Creat Clear 68, Estimated GFR 113, Est GFR ( Amer) 137, Glucose 145 H D, Calcium 8.4, Total Bilirubin 0.6, AST 34 D, ALT 22 D, Alkaline Phosphatase 263 H, Total Protein 5.7 L, Albumin 2.8 L D, Globulin 2.9, Albumin/Globulin Ratio 1.0 L, Lipase 22 L 01/19/22 12:15: SARS-CoV-2 (PCR) Not detected, Influenza A Untype (PCR) Not detected, Influenza Type B (PCR) Not detected 01/19/22 16:00: Lactate 2.0 01/19/22 16:16: POC Glucose 140 H 01/19/22 23:08: POC Glucose 133 H 01/20/22 00:52: Urine Color Brown, Urine Appearance Clear, Urine pH 6.5, Ur Specific [place] 1.025, Urine Protein 1+, Urine Glucose (UA) Trace, Urine Ketones Trace, Urine Blood Negative, Urine Nitrate Positive, Urine Bilirubin Negative, Urine Urobilinogen 2.0, Ur Leukocyte Esterase Negative, Urine WBC 3-5, Urine Bacteria 1+, Urine Mucus 2+ 01/20/22 05:27: POC Glucose 129 H 01/20/22 06:47: WBC 17.3 H, RBC 4.74, Hgb 15.3 D, Hct 46.9, MCV 98.8 H, MCH 32.3 H, MCHC 32.7, RDW 13.7, Plt Count 509 H, MPV 8.5, Neut % (Auto) 86.7 H, Lymph % (Auto) 6.5 L, [place] % (Auto) 6.4, Eos % (Auto) 0.1, Baso % (Auto) 0.3, Neut # (Auto) 15.0 H, Lymph # (Auto) 1.1, [place] # (Auto) 1.1 H, Eos # (Auto) 0.0, Baso # (Auto) 0.1, Total Counted 100, Neutrophils % (Manual) 83 H, Lymphocytes % (Manual) 8 L, Monocytes % (Manual) 9, Platelet Estimate Slight increase, RBC Morphology Normal 01/20/22 06:47: Sodium 131 L, Potassium 2.9 L*, Chloride 95 L, Carbon Dioxide 25, Anion Gap 13.9, BUN 13, Creatinine 0.50 L D, Estimated Creat Clear 70, Estimated GFR 167, Est GFR ( Amer) 202 D, Glucose 127 H, Calcium 7.8 L, Phosphorus 2.6, Magnesium 1.9, Total Bilirubin 0.6, AST 22 D, ALT 14 D, Alkaline Phosphatase 227 H, Total Protein 4.7 L, Albumin 2.3 L D, Globulin 2.4, Albumin/Globulin Ratio 1.0 L, Triglycerides 144, Cholesterol 103 L, LDL Cholesterol Direct 57.62 L, VLDL Cholesterol 29, HDL Cholesterol 23 L, Cholesterol/HDL Ratio 4.5 H I & O for Last 24 hours: Intake & Output 01/17/22 01/18/22 01/19/22 01/20/22 11:59 11:59 11:59 11:59 Intake Total 0 / 0 Output Total 320 / 320 Balance -320 / -320 Weight 144 lb 147 lb 2 oz Constitutional Constitutional: no acute distress *Routine Respiratory Exam Respiratory: Absent respiratory distress *Routine Cardiovascular Exam Comments: Remains mildly tachycardic *Routine Abdominal Exam Abdominal: Present soft and distended Comments: Less tender and slightly less distended Progress Note: A&P Assessment and plan (1) Stercoral colitis: Status: Acute Assessment and plan: Possible mild stercoral colitis with no definitive sign of deven perforation. Continue bowel regimen Continue Zosyn (2) Fecal impaction: Status: Acute Assessment and plan: Improving with current bowel regimen and status post manual/endoscopic disimpaction Continue aggressive bowel regimen If he demonstrates continued evidence of bowel function...adding a PO regimen reasonable (3) Constipation: Status: Acute (4) Chronic aorto-iliac
[2022-01-20 11:24] LABS: POC Glucose,Bedside 109 (70-110)
--- NOTE | 2022-01-20 13:18 | EXP.ACUTE.PN ---
Subjective *Date: 01/20/22 *Time: 13:18 Interval history: No issues overnight. having bowel movements. solid stool. rectal pain from enemas. Medical Exam Vital signs and Labs for Last 24 Hours: Vital Signs Temp Pulse Pulse Resp BP BP Pulse Ox 01/20/22 11:43 98.6 F 98 H 16 110/66 92 L 01/20/22 08:00 104 H 01/20/22 08:00 92 L 01/20/22 08:00 98.7 F 108 H 16 110/65 92 L 01/20/22 04:00 110 H 01/20/22 04:00 98.2 F 100 H 16 105/68 L 93 L 01/19/22 20:00 110 H 01/20/22 00:00 100 H 01/20/22 00:00 98.4 F 101 H 18 91/53 L 94 L 01/19/22 21:35 97 H 16 90/66 L 96 01/19/22 20:35 110 H 18 103/65 L 95 01/19/22 19:35 98.1 F 107 H 18 110/70 92 L 01/19/22 20:00 97 01/19/22 19:05 104 H 20 108/49 L 96 01/19/22 18:45 105 H 20 106/45 L 95 01/19/22 18:21 120 H 01/19/22 16:30 97 01/19/22 18:20 107 H 16 101/58 L 97 01/19/22 18:13 92 H 20 103/59 L 94 L 01/19/22 17:50 97 H 18 82/51 L 95 01/19/22 17:35 97.6 F 98 H 20 114/56 L 94 L 01/19/22 17:36 97.3 F L 79 16 106/51 L 97 01/19/22 17:26 97.1 F L 78 16 107/56 L 97 01/19/22 14:56 98.1 F 111 H 16 104/64 L 96 01/19/22 14:53 98.0 F 102 H 20 112/70 01/19/22 14:30 104 H 21 103/72 L 95 01/19/22 14:00 96 H 24 120/81 97 01/19/22 13:30 105 H 21 117/79 97 Intake and Output 1101/20/22 01/20/22 23:59 07:59 15:59 Intake Total 0 / 0 Output Total 320 / 320 Balance -320 / -320 Intake: Intake, Oral Amount 0 / 0 Output: Output, Urine Amount 320 / 320 Other: Number of Unmeasured Voids 0 Number of Bowel Movements 1 Weight 66.735 kg Patient Weight 01/20/22 23:59 Weight 66.735 kg Laboratory Results - last 24 hr 01/19/22 12:15: SARS-CoV-2 (PCR) Not detected, Influenza A Untype (PCR) Not detected, Influenza Type B (PCR) Not detected 01/19/22 16:00: Lactate 2.0 01/19/22 16:16: POC Glucose 140 H 01/19/22 23:08: POC Glucose 133 H 01/20/22 00:52: Urine Color Brown, Urine Appearance Clear, Urine pH 6.5, Ur Specific [place] 1.025, Urine Protein 1+, Urine Glucose (UA) Trace, Urine Ketones Trace, Urine Blood Negative, Urine Nitrate Positive, Urine Bilirubin Negative, Urine Urobilinogen 2.0, Ur Leukocyte Esterase Negative, Urine WBC 3-5, Urine Bacteria 1+, Urine Mucus 2+ 01/20/22 05:27: POC Glucose 129 H 01/20/22 06:47: WBC 17.3 H, RBC 4.74, Hgb 15.3 D, Hct 46.9, MCV 98.8 H, MCH 32.3 H, MCHC 32.7, RDW 13.7, Plt Count 509 H, MPV 8.5, Neut % (Auto) 86.7 H, Lymph % (Auto) 6.5 L, [place] % (Auto) 6.4, Eos % (Auto) 0.1, Baso % (Auto) 0.3, Neut # (Auto) 15.0 H, Lymph # (Auto) 1.1, [place] # (Auto) 1.1 H, Eos # (Auto) 0.0, Baso # (Auto) 0.1, Total Counted 100, Neutrophils % (Manual) 83 H, Lymphocytes % (Manual) 8 L, Monocytes % (Manual) 9, Platelet Estimate Slight increase, RBC Morphology Normal 01/20/22 06:47: Sodium 131 L, Potassium 2.9 L*, Chloride 95 L, Carbon Dioxide 25, Anion Gap 13.9, BUN 13, Creatinine 0.50 L D, Estimated Creat Clear 70, Estimated GFR 167, Est GFR ( Amer) 202 D, Glucose 127 H, Calcium 7.8 L, Phosphorus 2.6, Magnesium 1.9, Total Bilirubin 0.6, AST 22 D, ALT 14 D, Alkaline Phosphatase 227 H, Total Protein 4.7 L, Albumin 2.3 L D, Globulin 2.4, Albumin/Globulin Ratio 1.0 L, Triglycerides 144, Cholesterol 103 L, LDL Cholesterol Direct 57.62 L, VLDL Cholesterol 29, HDL Cholesterol 23 L, Cholesterol/HDL Ratio 4.5 H 01/20/22 11:17: POC Glucose 109 I & O for Labs for Last 24 Hours: Intake & Output 01/17/22 01/18/22 01/19/22 01/20/22 23:59 23:59 23:59 23:59 Intake Total 0 / 0 Output Total 320 / 320 Balance -320 / -320 Weight 64.552 kg 66.735 kg Head: Present normocephalic Neck: Present normal inspection Respiratory: Present rhonchi and wheezes; Absent accessory muscle use Cardiac: Present Reg Rate and Rhythm GI: Present distention, ten
--- NOTE | 2022-01-20 13:37 | XR_ITS ---
PROCEDURE INFORMATION: Exam: XR Complete Acute Abdomen Series Including Chest Exam date and time: 01/20/2022 1:47 PM Age: 66 years old Clinical indication: Other: Sbo TECHNIQUE: Imaging protocol: Radiologic exam. Complete acute abdomen series, including 2 or more views of the abdomen and a single view chest. COMPARISON: CR XR CHEST PORTABLE 01/19/2022 11:37 AM FINDINGS: Lungs: No evidence of pneumonia or interstitial edema. Pleural spaces: Normal. No pleural effusions. No pneumothorax. Heart/Mediastinum: Normal. No cardiomegaly. Gastrointestinal tract: Large amount of fecal retention in the rectosigmoid junction. There is dilation of large bowel loops. Intraperitoneal space: Normal. No free air. Bones/joints: Normal. No acute fracture. Soft tissues: Normal. Other findings: No free extraluminal air. IMPRESSION: 1. Large amount of fecal retention in the rectosigmoid junction. There is dilation of large bowel loops. 2. No evidence of pneumonia or interstitial edema.
--- NOTE | 2022-01-20 16:59 | PC.NURSE ---
Pt was a x2 assist to and from bathroom this shift. Urine is cloudy, red/brown in color with a foul odor. Pt has had mx2 small BM's this shift. Pt has been encouraged by nursing staff and MD to have x1 more mineral oil enema today, pt has continuously refused. Abd remains tender and distended. Active bowel sounds heard in RUQ only, and hypoactive in all other quads. Pt has remained on RA this shift. NSR/ST on tele. Family has visited t/o the shift. No other acute changes or complaints.
[2022-01-20 20:15] LABS: POC Glucose,Bedside 96 (70-110)
[2022-01-21 04:00] VITALS: BP 110/70; PULSE 89; TEMP 36.7; O2SAT 93
--- NOTE | 2022-01-21 04:36 | PC.NURSE ---
0315 notified this RN of bed open. Pt assigned to room 426 in [address] at [facility] 0316 Notified house of transfer [phone] Notified Hospitalist/Azalia of transfer 0411 Attempted to call report to [facility]. Nurse busy at this time. States she will call back when able. 0431 Gave report to DANO Robb at [facility].
--- NOTE | 2022-01-21 06:00 | PC.NURSE ---
Pt left floor with EMS personnel at 0545.
--- NOTE | 2022-01-21 19:24 | EXP.DC.SUM ---
General Admission date:: 01/19/22 Discharge date: 01/21/22 HPI HPI HPI: This is a 66-year-old gentleman with a complex past medical history who presented to emergency department with increasing abdominal distention and weakness. Patient presents with several week history of progressively worsening generalized weakness.? He describes symptoms as moderate to severe.? He denies chest pain or shortness of breath at this time he does note some abdominal distention and discomfort and states he has not had a bowel movement in weeks to months.? He does note vomiting.? He was seen at a local physician office and referred here today for further evaluation of his weakness. Evaluation included a CT scan that revealed significant colonic distention and possible mild stercoral colitis versus colitis of undetermined etiology. Surgical service was consulted for further evaluation. Patient states he has not had a bowel movement for approximately 2 months. Was sent to ER by cardiology clinic, where he was being evaluated today for peripheral vascular disease involving the distal aorta and common iliacs. Due to his symptoms that he described in clinic he was referred to ER. Upon arrival oral laxatives and mineral oil enemas were given. Surgery was consulted and took him to the OR for disimpaction. Hospital Course Hospital Course Hospital Course: 66-year-old man with known chronic aortoiliac occlusion syndrome and CAD admitted to the hospital from his follow-up cardiology appointment for abdominal pain x1 day. Patient reported at the time of admission he had not had a bowel movement approximately [address] abdomen was obtained with concern for severe fecal impaction and colonic distention with concern for stercoral colitis. Surgery attempted disimpaction but was unable to remove large amount of stool from colon. Oral and rectal bowel regimen agents were attempted with initial minimal output of stool. On day of transfer he did begin to have formed stool but still remained with colonic dilatation. Given severe colonic dilatation and fecal impaction paired with his poor surgical candidate secondary to coronary artery disease and aortoiliac occlusion, [facility] was consulted for transfer given chronic comorbidities and surgical risk and concerns for impending perforation. Patient was initially waitlisted and was transferred after 2 days of being on the wait list. At the time of transfer he was in stable condition. Exam Data for Last 24 hours Vital signs and Labs for Last 24 Hours: Temp Pulse Resp BP Pulse Ox 98.1 F 89 16 110/70 93 L 01/21/22 04:00 01/21/22 04:00 01/20/22 23:57 01/21/22 04:00 01/21/22 04:00 Laboratory Results - last 24 hr 01/20/22 20:07: POC Glucose 96 I & O for Last 24 hours: Intake & Output 01/18/22 01/19/22 01/20/22 01/21/22 23:59 23:59 23:59 23:59 Intake Total 2652 / 2772 120 / 120 Output Total 620 / 620 225 / 225 Balance 2031 / 2151 -105 / -105 Weight 64.552 kg 66.735 kg Microbiology Reports for the Last 24 Hours: Microbiology 01/19/22 16:00 Blood Blood Culture - Preliminary NO GROWTH AFTER 48 HOURS 01/19/22 15:35 Blood Blood Culture - Preliminary NO GROWTH AFTER 48 HOURS Constitutional Constitutional: no acute distress *Routine HEENT Exam Head: Present normocephalic Eye: Present EOMI and PERRL ENT: Present mucous membranes moist *Routine Neck Exam Neck: Present supple and full ROM *Routine Respiratory Exam Respiratory: Present normal respiratory effort *Routine Cardiovascular Exam Cardiovascular: Present RRR, Normal S1 and Normal S2 *Routine Abdominal Exam Abdominal: Present distended; Absent normoactive bowel sounds (Hypoactive bowel sounds) *Routine Rectal Exam Visual: Present fecal impaction *Routine Extremities Exam Extremities: Present full ROM, pulses intact and normal capillary r
== END 2022-01-21 05:45 | disposition short-term general hospital (02) ==
LOC: ER 13:14 → 2ND 13:46
PROVIDERS: Surgery; Admitting Provider Student in an Organized Health Care Education/Training Program; Emergency Provider Emergency Medicine; PCP Emergency Medicine; Visit Provider Student in an Organized Health Care Education/Training Program
PROC: 0DJD8ZZ Inspection of Lower Intestinal Tract, Via Natural or Artificial Opening Endoscopic (ICD-10-PCS; CPT 45378; principal; 2022-01-19 16:00)
DX: K56.41 Fecal impaction (principal); I74.09 Other arterial embolism and thrombosis of abdominal aorta; I10 Essential (primary) hypertension; I74.5 Embolism and thrombosis of iliac artery; K52.89 Other specified noninfective gastroenteritis and colitis; Z20.822 Contact with and (suspected) exposure to COVID-19; J44.9 Chronic obstructive pulmonary disease, unspecified; F17.210 Nicotine dependence, cigarettes, uncomplicated; Z79.899 Other long term (current) drug therapy; I25.10 Atherosclerotic heart disease of native coronary artery without angina pectoris
CPT/HCPCS: 45915; G0378; 36415; 71045; 74021; 74176; 80053; 80061; 81001; 82962; 83605; 83690; 83735; 84100; 85007; 85025; 87040; 93306; 99285; C9803; J2405; J2543; U0003; U0005